=== PATIENT | male | born 1975 | race Caucasian/White ===

== ENCOUNTER 2023-09-03 12:07 | Outpatient (AMB) | payer OTHER, SELFPAY ==
[2023-09-03 12:15] VITALS: BP 122/72; PULSE 102; O2SAT 98; BMI 33.7
--- NOTE | 2023-09-03 12:15 | A.OFFPC_ITS ---
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 Dad: DM-I, CAD w/ Bypass, CHF. SocHx: Nonsmoker. EtOH Rarely 1 dr. No drugs PFS Medical History (Updated 09/03/23 @ 12:57 by Anderson Lynn) No pertinent past medical history Surgical History (Updated 09/03/23 @ 12:23 by Nanette Cedeno CMA) No pertinent past surgical history Family History (Updated 09/03/23 @ 12:24 by Nanette Cedeno CMA) Father Diabetes Mother Cervical cancer Social History Household Members: Spouse Housing: House Are you a primary direct care provider to a significant other at home: No Do you presently have visiting nurse or other home services: No Alcohol intake: current Comment: on occasion Patient Tobacco Use Status: Never used Tobacco e-Cigarette/Vaping Use: Never Used service: No Current occupational status: employed 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 Cognitive needs: No Hearing needs: No Vision needs: Yes (Patient wears glasses) Review of Systems Const Denies chills, Denies fatigue, Denies fever(s), Denies headache(s) and Denies weakness ENT Denies dizziness and Denies headache(s) Card Denies chest pain, Denies lightheadedness, Denies dyspnea and Denies other (Palpitations) Resp Denies cough, Denies dyspnea, Denies wheezing and Denies other ( shortness of breath) Musc Denies numbness and Denies tingling Neuro Denies dizziness, Denies headache(s), Denies numbness, Denies tingling, Denies paresthesias and Denies weakness Psych Denies anxiety and Denies depression Endo Denies fatigue Aller/Immun Denies wheezing Physical exam (Primary Care) Vital Signs: Last Vital Signs Pulse 102 H 09/03/23 12:15 BP 122/72 09/03/23 12:15 Pulse Ox 98 09/03/23 12:15 Oxygen Delivery Method Room Air 09/03/23 12:15 BMI result Body Mass Index 33.7 Tobacco/Smoking Status: Tobacco use Status Tobacco use date assessed 09/03/23 09/03/23 12:23 Patient Tobacco Use Status Never used Tobacco 09/03/23 12:26 e-Cigarette/Vaping Use Never Used 09/03/23 12:26 Const General: no acute distress and well developed Nutritional Appearance: well nourished Orientation/consciousness: patient oriented x3 HENMT Head: Yes normocephalic and Yes atraumatic Eyes General: appearance normal, both eyes and all related structures Pupils: Equal, round and reactive pupils present EOM: EOMs intact bilaterally Resp Effort & Inspection: normal respiratory effort Auscultation: clear to auscultation bilaterally Cardio Rate: tachycardic (mild) Rhythm: regular rhythm Heart sounds: S1 normal heart sound present, S2 normal heart sound present, no gallops, no murmurs and no rubs Neuro General: patient oriented x3 and gait normal Cranial nerves: Yes Equal, round and reactive pupils present Psych Affect: normal affect Office Procedures EKG 64704-[id number], Complete Assessment and Plan Assessment & Plan (1) Foot pain: Code(s): M79.673 - Pain in unspecified foot Plan: Bilateral?5th?metatarsal?head?pain Likely?tendinitis?or?bursitis Encouraged?good?foot?gear Ice, NSAIDs Demonstrated?stretching Referred?to?Podiatry (2) Laboratory exam ordered as part of routine general medical examination: Code(s): Z00.00 - Encounter for general adult medical examination without abnormal findings Plan: Check?lab EKG (3) Tachycardia: Code(s): R00.0 - Tachycardia, unspecified Plan: Mild?tachycardia EKG: ?EKG?showed?normal?sinus?rhythm?with?heart?rate?of?96?beats?per?minute?when?lyin g?flat. Also?shows?left?atrial?enlargement?and?inferior?infarct?with?Q- waves?in?lead?3?and?AVF. (4) Abnormal EKG: Code(s): R94.31 - Abnormal electrocardiogram [ECG] [EKG] Plan: As?above,?EKG?shows?atrial?enlargement?and?old?inferior?infarct. Patient?denies?any?history?of?chest?pain.??Denies?shortness?of? breath.??Asymptomatic Will?check?echocardiogram Referred?to?cardiology Orders: Orders Comprehensive Cornish. Panel Fast Today Z00.00 - Encounter for general adult medical examination without abnormal findings Prostate Specific Antigen Scr Today Z12.5 - Encounter for screening for malignant neoplasm of prostate Lipid Panel Today Z00.00 - Encounter for general adult medical examination without abnormal findings TSH reflex Free T4 Today Z00.00 - Encounter for general adult medical examination without abnormal findings UA and rflx microscopic Today Z00.00 - Encounter for general adult medical examination without abnormal findings Microalbumin, Random (w Creat) Today I10 - Essential (primary) hypertension AMB EKG-In Office Today Z00.00 - Encounter for general adult medical examination without abnormal findings CA echo transthoracic complete Today R94.31 - Abnormal electrocardiogram [ECG] [EKG] Referrals Podiatry Referral M79.673 - Pain in unspecified foot Cardiology Referral R94.31 - Abnormal electrocardiogram [ECG] [EKG] Coding Level of Care Code New Pt Level 3 (03543) Diagnoses Foot pain M79.673 Laboratory exam ordered as part of routine general medical examination Z00.00 Tachycardia R00.0 Abnormal EKG R94.31 CPT Codes EKG - CPT: 10738-[id number], Complete ([id number])
== END 2023-09-03 12:59 | disposition home or self-care (01) ==
PROVIDERS: PCP Family Medicine; Visit Provider Family Medicine
DX: M79.673 Pain in unspecified foot (principal); Z00.00 Encounter for general adult medical examination without abnormal findings; R00.0 Tachycardia, unspecified; R94.31 Abnormal electrocardiogram [ECG] [EKG]
CPT/HCPCS: 93000; 99203

== ENCOUNTER → 2023-09-24 14:41 | Outpatient (REF) | payer OTHER, SELFPAY ==
--- NOTE | 2023-09-24 14:49 | CA_ITS ---
Transthoracic Echocardiogram Patient (Last, First, Middle): Barrington Salguero, Gender: Male Date of : 1975 Age: 48 Procedure Date: 09/24/2023 Procedure Type: Transthoracic Echocardiogram Location: OP Height: 175.26 cm Weight: 99.79 kg BSA: 2.15 m2 Heart Rate: bpm BP: 120 / 78 mmHg Netting Inspector: TO Referring MD: Willi Mary MD Symptoms: R94.31 - Abnormal electrocardiogram [ECG] [EKG] Study Quality: Fair/Contrast ECG Rhythm: Sinus tachycardia Conclusions: - The left ventricular systolic function is mildly decreased. The calculated ejection fraction is 51% by biplane method. - The inferolateral wall, the basal inferior, and mid anterolateral segments are hypokinetic. - No obvious valvular pathology seen on this study. - There is mild dilatation of the ascending aorta measuring 4.10 cm. Findings Procedure Information Contrast agent, definity, is being given per protocol without apparent complications. Left Ventricle Normal left ventricular cavity size. There is mildly increased left ventricular wall thickness. The left ventricular systolic function is mildly decreased. The calculated ejection fraction is 51% by biplane method. There is moderate septal asymmetric hypertrophy. Wall Motion Rest Echo Findings The inferolateral wall, the basal inferior, and mid anterolateral segments are hypokinetic. Right Ventricle Normal right ventricular cavity size and systolic function. Atria Both atria are normal in size. Aortic Valve There is a normal trileaflet aortic valve. There is no aortic valve stenosis. There is no aortic valve regurgitation. Mitral Valve The mitral valve appears normal. There is no mitral valve regurgitation. There is no mitral valve stenosis. Pulmonic Valve The pulmonic valve is likely normal. Tricuspid Valve There is no tricuspid valve regurgitation. Tricuspid regurgitation envelope is inadequate for calculation of right ventricular systolic pressure. Great Vessels There is mild dilatation of the ascending aorta measuring 4.10 cm. Venous The inferior vena cava is normal in size and collapses greater than 50% with inspiration. Pericardium/Pleural There is no evidence of pericardial effusion. Prior Study Comparison No prior study available for comparison. Recommendations, Care & Conclusions No obvious valvular pathology seen on this study. Measurements 2D Linear Measurements IVSd: 1.41 0.6-0.9/0.6-1.0 cm LVIDd: 4.84 3.9-5.3/4.2-5.9 cm LVIDd Index: 2.25 2.4-3.2/2.2-3.1 cm/m2 LVIDs: 3.47 2.0-3.6 cm LVPWd: 1.17 0.7-1.1 cm LA Diam: 3.30 2.7-3.8/3.0-4.0 cm LAIDs Index: 1.53 1.5-2.3 cm/m2 LV Mass: 306.94 67-162/88-224 g LV Mass Index: 142.76 43-95/49-115 g/m2 LVOT Diam: 2.80 3.0+(-)1.3 cm 2D Systolic Function EF 4C: 54.70 >55% EF 2C: 50.20 >55% EF BiP: 50.70 >55% Mitral Valve MV Pk E: 0.52 MV PK A: 0.80 MV Decel Time: 123.00 E/A: 0.70 E'Lateral: 12.90 E'Medial: 7.29 E/E' Med: 7.20 E/E' Lat: 4.10 PHT: 36.00 MVA PHT: 6.11 Decel Waldo: 4.25 Aortic Valve AoV Pk Danilo: 1.39 AoV Mn Danilo: 0.92 AoV VTI: 0.21 AoV Pk Grad: 8.00 Aov Mn Grad: 4.00 KAREN Cont.VTI: 4.81 LVOT LVOT Pk Danilo: 1.03 LVOT Mn Danilo: 0.67 LVOT VTI: 0.16 LVOT Pk Grad: 4.00 LVOT Mn Grad: 2.00 LVOT Diam: 2.80 LVOT Area: 6.16 Diastolic Function MV Pk E: 0.52 MV Pk A: 0.80 E/A: 0.70 E'Medial: 7.29 E/E' Med: 7.20 E' Laterial: 12.90 E/E' Lat: 4.10 Right Ventricle TAPSE (mm): 23.30 TVS' Danilo: 14.30 Tricuspid Valve RA Press: 3.00 Great Vessels Aorta Sinus of Valsalva: 4.30 2.0-3.[address] [place]: 3.44 1.7-3.4 cm Ao Asc: 4.10 2.1-3.4 cm Ao Arch: 3.40 Updated in Other Vendor System with Status of Final Toy Burger MD electronically signed on 09/25/2023 10:58:13 AM with status of Final
== END ==
LOC: HO.CARD 14:41
PROVIDERS: PCP Family Medicine; Visit Provider Family Medicine
DX: R94.31 Abnormal electrocardiogram [ECG] [EKG] (principal)
CPT/HCPCS: 93306; Q9957

== ENCOUNTER → 2023-09-24 14:49 | Outpatient (BNV) | payer OTHER, SELFPAY | PROVIDERS: PCP Family Medicine; Visit Provider Internal Medicine | DX: I42.2 Other hypertrophic cardiomyopathy (principal); R94.31 Abnormal electrocardiogram [ECG] [EKG] | CPT/HCPCS: 93306 ==

== ENCOUNTER 2023-10-06 15:53 | Outpatient (AMB) | payer OTHER, SELFPAY ==
[2023-10-06 16:02] VITALS: BP 130/72; PULSE 102; O2SAT 97; BMI 33.1
--- NOTE | 2023-10-06 16:02 | MHC.PC.OV ---
Vital Signs 10/06/23 16:02 Height 5 ft 9 in Weight 224 lb 2 oz BMI 33.1 BP 130/72 Blood Pressure Location Rt brachial Position Sitting Pulse 102 H Pulse Source Pulse Oximeter Pulse Oximetry (%) 97 Oxygen Delivery Method Room Air Intake Visit Reasons: f/u echocardiogram and labs Intake Note: Patient is here to follow up on the echocardiogram. Allergies albumin Adverse Reaction (Mild, Uncoded 10/16/23 13:58) Vomiting Tobacco use date assessed: 10/06/23 Dental Screening Dental Screen Date: 09/03/23 HPI f/u echocardiogram and labs HPI Details 48 y/o male presents to f/u echocardiogram and labs. EKG performed due to tachycardia and new patient 48 years of age - EKG showed atrial enlargement and also Q-waves in lead 3 and AVF; appears to have inferior infarction though he denies any history of chest pain or current symptoms. Echocardiogram 09/24/23 showed no obvious valvular pathology. The inferolateral wall, the basal inferior, and mid anterolateral segments are hypokinetic. L ventricular systolic function mildly decreased. No recent labs to review. Has an appt. with Cardiology in November. [facility] Medical History (Updated 10/18/23 @ 10:42 by Lin Rivers MD) Diabetes No pertinent past medical history Surgical History (Updated 10/16/23 @ 14:45 by Lin Rivers MD) No pertinent past surgical history (~10/16/23) Family History (Updated 09/03/23 @ 12:24 by Nanette Cedeno CMA) Father Diabetes Mother Cervical cancer Social History (Updated 09/03/23 @ 12:26 by Nanette Cedeno CMA) Household Members: Spouse Housing: House Are you a primary animal care attendant to a significant other at home: No Do you presently have visiting nurse or other home services: No Alcohol intake: current Comment: on occasion Patient Tobacco Use Status: Never used Tobacco e-Cigarette/Vaping Use: Never Used service: No Current occupational status: employed 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 Cognitive needs: No Hearing needs: No Vision needs: Yes (Patient wears glasses) Review of Systems Const Denies chills, Denies fatigue, Denies fever(s), Denies headache(s) and Denies weakness ENT Denies dizziness and Denies headache(s) Card Denies dyspnea Resp Denies cough, Denies dyspnea, Denies wheezing and Denies other (shortness of breath) Musc Denies numbness and Denies tingling Neuro Denies dizziness, Denies headache(s), Denies numbness, Denies tingling and Denies weakness Psych Denies anxiety and Denies depression Endo Denies fatigue Aller/Immun Denies wheezing Physical exam (Primary Care) Vital Signs: Last Vital Signs Pulse 102 H 10/06/23 16:02 BP 130/72 10/06/23 16:02 Pulse Ox 97 10/06/23 16:02 Oxygen Delivery Method Room Air 10/06/23 16:02 BMI result Body Mass Index 33.1 Tobacco/Smoking Status: Tobacco use Status Tobacco use date assessed 10/06/23 10/06/23 16:09 Patient Tobacco Use Status Never used Tobacco 10/06/23 16:06 e-Cigarette/Vaping Use Never Used 10/06/23 16:06 Const General: well developed; No acute distress Nutritional Appearance: well nourished Orientation/consciousness: patient oriented x3 HENMT Head: Yes normocephalic and Yes atraumatic Eyes General: appearance normal, both eyes and all related structures Pupils: Equal, round and reactive pupils present EOM: EOMs intact bilaterally Resp Effort & Inspection: normal respiratory effort Auscultation: clear to auscultation bilaterally Cardio Rate: tachycardic Rhythm: regular rhythm Heart sounds: S1 normal heart sound present, S2 normal heart sound present, no gallops, no murmurs and no rubs Neuro General: patient oriented x3 and gait normal Cranial nerves: Yes Equal, round and reactive pupils present Psych Affect: normal affect Assessment and Plan Assessment & Plan (1) Abnormal echocardiogram: Code(s): R93.1 - Abnormal findings on diagnostic imaging of heart and coronary circulation Plan: Mildly?decreased?ejection?fraction?at?51%?with?inferolateral wall, the basal inferior, and mid anterolateral hypokinesis. Also?had?EKG which ?showed?inferior?changes Pt was referred to Cardiology and has upcoming appt No symptomes. Go to ED for any pain or other sxs such as SOB, diaphoresis, dizziness or weakness/fatigue. (2) Tachycardia: Code(s): R00.0 - Tachycardia, unspecified Plan: as above (3) Abnormal echocardiogram: Code(s): R93.1 - Abnormal findings on diagnostic imaging of heart and coronary circulation Plan: As above Orders: Orders NM cardiolite stress test 10/06/23 R00.0 - Tachycardia, unspecified, R93.1 - Abnormal findings on diagnostic imaging of heart and coronary circulation, R94.31 - Abnormal electrocardiogram [ECG] [EKG] Medications: New atorvastatin 40 mg PO BEDTIME 90 tabs 2RF 90 days aspirin 81 mg PO DAILY 90 tabs 3RF 90 days Coding Level of Care Code Est Pt Level 3 (33246) Diagnoses Abnormal echocardiogram R93.1 Tachycardia R00.0
== END 2023-10-06 17:07 | disposition home or self-care (01) ==
PROVIDERS: PCP Family Medicine; Visit Provider Family Medicine
DX: R93.1 Abnormal findings on diagnostic imaging of heart and coronary circulation (principal); R00.0 Tachycardia, unspecified
CPT/HCPCS: 99213

== ENCOUNTER 2023-10-13 08:40 | Outpatient (REF) | payer OTHER, SELFPAY ==
[2023-10-13 09:56] LABS: Alanine Aminotransferase 24 U/L (0-40); Albumin Level 4.3 g/dL (3.5-5.0); Alkaline Phosphatase 65 U/L (39-117); Anion Gap 14 (12-20); Aspartate Amino Transferase 16 U/L (5-37); Bilirubin Total 1.2 mg/dL (0.0-1.0); Blood Urea Nitrogen 10 mg/dL (9-16); Calcium 9.4 mg/dL (8.4-10.2); Carbon Dioxide 26 mmol/L (22-29); Chloride 100 mmol/L (96-108); Cholesterol 198 mg/dL (<200); Estimated Glomerular Filt Rate > 60; Glucose Fasting 307 mg/dL (60-99); HDL Cholesterol 42 mg/dL (>40); LDL Cholesterol Calculated 133 mg/dL (<100); Potassium 4.2 mmol/L (3.3-5.1); Sodium 136 mmol/L (135-145); Total Protein 7.1 g/dL (6.5-8.0); Triglycerides 116 mg/dL (<150)
[2023-10-13 09:57] LABS: Appearance Urine Clear; Color Urine Yellow; Glucose Urine UA >=1000 mg/dL (Negative); Leukocyte Esterase Urine Negative (Negative); Nitrite Urine Negative (Negative); Specific Gravity - Urine 1.025 (1.005-1.025); UMIC TRIGGER UA YES; Urine Blood Negative (Negative); Urine Ketones Negative (Negative); Urine Protein Negative (Neg-Trace)
[2023-10-13 10:03] LABS: TSH reflex Free T4 0.71 uIU/mL (0.32-4.0)
[2023-10-13 10:11] LABS: Prostate Specific Antigen Scr 0.18 ng/mL (<0.05-4.0)
[2023-10-13 10:15] LABS: Bacteria Urine None Seen (None Seen); Hyaline Casts Urine 0-2 /LPF (0-2); RBC Urine 0-2 /HPF (0-2); Squamous Epithelial Cell Urine 0-2 /HPF (0-2); WBC Urine 0-5 /HPF (0-5)
[2023-10-13 10:27] LABS: Creatinine Urine 125.01 mg/dL; Microalbum/Creatinine Ratio Ur 23.1 ug/mg cr (<30)
== END 2023-10-13 08:41 | disposition home or self-care (01) ==
LOC: HO.LAB 08:40
PROVIDERS: PCP Family Medicine; Visit Provider Family Medicine
DX: Z00.00 Encounter for general adult medical examination without abnormal findings (principal); I10 Essential (primary) hypertension; Z12.5 Encounter for screening for malignant neoplasm of prostate
CPT/HCPCS: 36415; 80053; 80061; 81001; 82043; 82570; 84153; 84443

== ENCOUNTER 2023-10-16 13:46 | Outpatient (AMB) | payer OTHER, SELFPAY ==
--- NOTE | 2023-10-16 13:58 | MHC.PC.OV ---
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 Seeing his elevated glucose last week the patient started a low/no carb diet and has been doing well. He denies polydipsia, polyuria. No abdominal pain. Endorses some recent weight loss. There is a strong family history of diabetes Patient has an upcoming consult with cardiology in November. He had an EKG suggestive of old ischemia and subsequent echocardiogram showed mild systolic dysfunction with moderate hypokinesis. [facility] Medical History (Updated 10/18/23 @ 10:42 by Lin Rivers MD) Diabetes No pertinent past medical history Surgical History (Updated 10/16/23 @ 14:45 by Lin Rivers MD) No pertinent past surgical history (~10/16/23) Family History (Updated 09/03/23 @ 12:24 by Nanette Cedeno CMA) Father Diabetes Mother Cervical cancer Social History (Updated 09/03/23 @ 12:26 by Nanette Cedeno CMA) Household Members: Spouse Housing: House Are you a primary health care legal assistant to a significant other at home: No Do you presently have visiting nurse or other home services: No Alcohol intake: current Comment: on occasion Patient Tobacco Use Status: Never used Tobacco e-Cigarette/Vaping Use: Never Used service: No Current occupational status: employed 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 Cognitive needs: No Hearing needs: No Vision needs: Yes (Patient wears glasses) Review of Systems Const Details: see HPI Physical exam (Primary Care) Vital Signs: Last Vital Signs Temp 98.4 F 10/16/23 14:00 Pulse 115 H 10/16/23 14:00 Resp 14 10/16/23 14:00 BP 134/88 10/16/23 14:13 Pulse Ox 97 10/16/23 14:00 Oxygen Delivery Method Room Air 10/16/23 14:00 PHYSICAL EXAM: GENERAL: Alert and oriented x 3. NAD EYES: EOMI. Anicteric. HENT: Moist mucous membranes. No scleral icterus. No cervical lymphadenopathy. LUNGS: Clear to auscultation bilaterally. CARDIOVASCULAR: Regular rate and rhythm. No murmur. No JVD. ABDOMEN: Soft, non-tender +bs EXTREMITIES: No edema. Non-tender. SKIN: No rashes or lesions. Warm. NEUROLOGIC: No focal neurological deficits. PSYCHIATRIC: Cooperative. Appropriate mood and affect BMI result Body Mass Index 33.5 Tobacco/Smoking Status: Tobacco use Status Tobacco use date assessed 10/06/23 10/16/23 14:02 Patient Tobacco Use Status Never used Tobacco 10/16/23 14:02 e-Cigarette/Vaping Use Never Used 10/16/23 14:02 Results AMB Hemoglobin A1c AMB Hemoglobin A1c 12.7 % Last Edit by Marlene Esquivel CMA on 10/16/23 14:44 Results Reviewed Results Reviewed: Laboratory Last Values Hgb A1c (Clinic) 12.7 % (4.0-6.0) H 10/16/23 14:35 Assessment and Plan Assessment & Plan (1) Type 2 diabetes mellitus with hyperglycemia: Comment: Discussed diagnosis Patient declines nutrition referral at present . 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 drier operator use Qualified Code(s): E11.65 - Type 2 diabetes mellitus with hyperglycemia (2) Chronic systolic CHF (congestive heart failure): Code(s): I50.22 - Chronic systolic (congestive) heart failure (3) CAD (coronary artery disease): Code(s): I25.10 - Atherosclerotic heart disease of [place] coronary artery without angina pectoris Orders: Orders AMB Hemoglobin A1c 10/16/23 E11.9 - Type 2 diabetes mellitus without complications Medications: New metformin ER Take one tablet oral twice daily for one week then increase to 2 tab oral twice daily 1,000 mg (2 x 500 mg) PO BID 360 tabs 3RF 90 days FreeStyle [place] 14 Day [place] (flash glucose scanning reader) As directed 1 ea 0RF NS E11.65 - Type 2 diabetes mellitus with hyperglycemia FreeStyle [place] 14 Day Sensor (flash glucose sensor) As directed 6 ea 3RF NS E11.65 - Type 2 diabetes mellitus with hyperglycemia Coding Level of Care Code Tele Est Pt Level 5 (46053) Diagnoses Type 2 diabetes mellitus with hyperglycemia, without long-term current use of insulin E11.65 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
[2023-10-16 14:00] VITALS: BP 136/90; PULSE 115; RESP 14; TEMP 36.9; O2SAT 97; BMI 33.5
[2023-10-16 14:13] VITALS: BP 134/88
== END 2023-10-16 14:58 | disposition home or self-care (01) ==
PROVIDERS: PCP Family Medicine; Visit Provider Internal Medicine
DX: E11.65 Type 2 diabetes mellitus with hyperglycemia (principal); I50.22 Chronic systolic (congestive) heart failure; I25.10 Atherosclerotic heart disease of native coronary artery without angina pectoris
CPT/HCPCS: 83036; 99215

== ENCOUNTER 2023-11-02 11:10 | Outpatient (AMB) | payer OTHER, SELFPAY ==
--- NOTE | 2023-11-02 11:16 | MHC.PC.OV ---
Vital Signs 11/02/23 11:19 Height 5 ft 9 in Weight 216 lb 6 oz BMI 31.9 BP 118/80 Blood Pressure Location Lt brachial Position Sitting Respiration 14 Pulse 91 Pulse Source Pulse Oximeter Pulse Oximetry (%) 98 Oxygen Delivery Method Room Air Intake Visit Reasons: CPE Intake Note: Follow up. Allergies albumin Adverse Reaction (Mild, Uncoded 11/02/23 11:17) Vomiting Tobacco use date assessed: 10/06/23 Dental Screening Dental Screen Date: 09/03/23 HPI HPI Comments History of Present Illness Details The patient is a 48 year old male with a past medical history of recent abnormal cardiac testing, hyperlipidemia brought in to review labs, specifically increased glucose level Had labs last month with elevated glucose, then A1C 12.7%. He was started on metformin 2 weeks ago and has uptitrated to 1000mg twice daily. tolerating well. Average fasting glucose now ~130-150 with overall average 150-190, improved from previous readings. Using CGM. continues on his low/no carb diet and has been doing well. There is a strong family history of diabetes Patient has an upcoming consult with cardiology in November. He had an EKG suggestive of old ischemia and subsequent echocardiogram showed mild systolic dysfunction with moderate hypokinesis. ROS CONSTITUTIONAL: Denies weight loss, fever and chills. HEENT: Denies changes in vision and hearing. RESPIRATORY: Denies SOB and cough. CV: Denies palpitations and CP GI: Denies abdominal pain, nausea, vomiting and diarrhea. : Denies dysuria and urinary frequency. MSK: Denies new myalgia and joint pain. SKIN: Denies rash and pruritus. NEUROLOGICAL: Denies headache PSYCHIATRIC: Denies recent changes in mood. PHYSICAL EXAM: GENERAL: Alert and oriented x 3. NAD EYES: EOMI. Anicteric. HENT: Moist mucous membranes. No scleral icterus. No cervical lymphadenopathy. LUNGS: Clear to auscultation bilaterally. CARDIOVASCULAR: Regular rate and rhythm. No murmur. No JVD. ABDOMEN: Soft, non-tender +bs EXTREMITIES: No edema. Non-tender. SKIN: No rashes or lesions. Warm. NEUROLOGIC: No focal neurological deficits. CN II-XII grossly intact PSYCHIATRIC: Cooperative. Appropriate mood and affect [facility] Medical History (Updated 11/03/23 @ 13:07 by Lin Rivers MD) Diabetes No pertinent past medical history Surgical History (Updated 10/16/23 @ 14:45 by Lin Rivers MD) No pertinent past surgical history (~10/16/23) Family History (Updated 09/03/23 @ 12:24 by Nanette Cedeno CMA) Father Diabetes Mother Cervical cancer Social History (Updated 09/03/23 @ 12:26 by Nanette Cedeno CMA) Household Members: Spouse Housing: House Are you a primary client care consultant to a significant other at home: No Do you presently have visiting nurse or other home services: No Alcohol intake: current Comment: on occasion Patient Tobacco Use Status: Never used Tobacco e-Cigarette/Vaping Use: Never Used service: No Current occupational status: employed 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 Cognitive needs: No Hearing needs: No Vision needs: Yes (Patient wears glasses) Physical exam (Primary Care) Vital Signs: Last Vital Signs Pulse 91 11/02/23 11:19 Resp 14 11/02/23 11:19 BP 118/80 11/02/23 11:19 Pulse Ox 98 11/02/23 11:19 Oxygen Delivery Method Room Air 11/02/23 11:19 BMI result Body Mass Index 31.9 Tobacco/Smoking Status: Tobacco use Status Tobacco use date assessed 10/06/23 11/02/23 11:16 Patient Tobacco Use Status Never used Tobacco 11/02/23 11:16 e-Cigarette/Vaping Use Never Used 11/02/23 11:16 Assessment and Plan Assessment & Plan (1) Type 2 diabetes mellitus with hyperglycemia: Comment: Continue metformin 1000mg twice daily. Given likely CAD add jardiance as glucose still suboptimal. Discussed MOA and potential SE. Start CAN low dose. Start statin. Return in 2 months for follow up & CPE Code(s): E11.65 - Type 2 diabetes mellitus with hyperglycemia Qualifiers: Diabetes mellitus care home insulin use: without care home use Qualified Code(s): E11.65 - Type 2 diabetes mellitus with hyperglycemia (2) Chronic systolic CHF (congestive heart failure): Comment: Follow up with cardiology consult as planned Code(s): I50.22 - Chronic systolic (congestive) heart failure (3) CAD (coronary artery disease): Code(s): I25.10 - Atherosclerotic heart disease of [place] coronary artery without angina pectoris Qualifiers: Coronary Disease-Associated Artery/Lesion type: [place] artery Associated angina: without angina [place] vs. transplanted heart: [place] heart Qualified Code(s): I25.10 - Atherosclerotic heart disease of [place] coronary artery without angina pectoris Orders: Orders Comprehensive [place]. Panel Fast 11/02/23 E11.65 - Type 2 diabetes mellitus with hyperglycemia, I25.10 - Atherosclerotic heart disease of [place] coronary artery without angina pectoris, I50.22 - Chronic systolic (congestive) heart failure Hemoglobin A1c 11/02/23 E11.65 - Type 2 diabetes mellitus with hyperglycemia, I25.10 - Atherosclerotic heart disease of [place] coronary artery without angina pectoris, I50.22 - Chronic systolic (congestive) heart failure Lipid Panel 11/02/23 E11.65 - Type 2 diabetes mellitus with hyperglycemia, I25.10 - Atherosclerotic heart disease of [place] coronary artery without angina pectoris, I50.22 - Chronic systolic (congestive) heart failure Medications: New empagliflozin (Jardiance) 10 mg PO QAM 90 tabs 3RF 90 days lisinopril 2.5 mg PO DAILY 90 tabs 3RF 90 days Coding Level of Care Code Tele Est Pt Level 5 (87647) Complex EM visit Add On G2211 Diagnoses Type 2 diabetes mellitus with hyperglycemia, without long-term current use of insulin E11.65 Diabetes mellitus 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 transplanted heart: [place] heart
[2023-11-02 11:19] VITALS: BP 118/80; PULSE 91; RESP 14; O2SAT 98; BMI 31.9
== END 2023-11-02 12:04 | disposition home or self-care (01) ==
PROVIDERS: PCP Internal Medicine; Visit Provider Internal Medicine
DX: E11.65 Type 2 diabetes mellitus with hyperglycemia (principal); I50.22 Chronic systolic (congestive) heart failure; I25.10 Atherosclerotic heart disease of native coronary artery without angina pectoris
CPT/HCPCS: 99214; G2211

== ENCOUNTER 2023-11-18 08:34 | Outpatient (AMB) | payer OTHER, SELFPAY ==
--- NOTE | 2023-11-18 08:35 | A.OFFVIS_ITS ---
VS Expanded 11/18/23 08:37 11/23/23 14:33 Height 5 ft 9 in 5 ft 9 in Weight 208 lb 5.389 oz 208 lb BMI 30.8 30.7 Intake Visit Reasons: T2DM with hyperglycemia/LVM Allergies albumin Adverse Reaction (Mild, Uncoded 11/02/23 11:17) Vomiting Nutrition Presentation Details: Pt presents for MNT for T2DM with atherosclerotic heart disease. Pt was referred by Dr. Rivers BS Monitoring Most Recent Diabetes Results: Microalb/Creat Ratio 23.1 ug/mg cr (<30) 10/13/23 Cholesterol 198 mg/dL (<200) 10/13/23 HDL Cholesterol 42 mg/dL (>40) 10/13/23 Triglycerides 116 mg/dL (<150) 10/13/23 Creatinine 0.79 mg/dL (0.5-1.4) 10/13/23 Blood Urea Nitrogen 10 mg/dL (9-16) 10/13/23 Sodium 136 mmol/L (135-145) 10/13/23 Potassium 4.2 mmol/L (3.3-5.1) 10/13/23 Chloride 100 mmol/L (96-108) 10/13/23 Carbon Dioxide 26 mmol/L (22-29) 10/13/23 Calcium 9.4 mg/dL (8.4-10.2) 10/13/23 AST 16 U/L (5-37) 10/13/23 ALT 24 U/L (0-40) 10/13/23 Total Protein 7.1 g/dL (6.5-8.0) 10/13/23 Albumin 4.3 g/dL (3.5-5.0) 10/13/23 [id number] Equation Height: 5 ft 9 in Weight: 208 lb Resting Metabolic Rate: 1796.90 Calculated Activity Level: Mild Activity Calories Needed to Maintain Weight: 2470.74 Diagnosis Nutrition problem #1: food nutri know defi As related to (etiology) #1: diagnosis As evidenced by (sign/symptom) #1: knowledge deficit of diet Monitoring/Goals Nutrition problem monitoring: level of knowledge/skill Nutrition goal/outcome: wt loss 5lbs in 2 months Outcome progress: verbalized understanding Learning/Education Readiness to learn: good [facility] Medical History (Updated 11/23/23 @ 14:[address], LDN) Diabetes No pertinent past medical history Surgical History (Updated 10/16/23 @ 14:45 by Lin Rivers MD) No pertinent past surgical history (~10/16/23) Family History (Updated 09/03/23 @ 12:24 by Nanette Cedeno CMA) Father Diabetes Mother Cervical cancer Social History (Updated 09/03/23 @ 12:26 by Nanette Cedeno CMA) Household Members: Spouse Housing: House Are you a primary childbirth and infant care teacher to a significant other at home: No Do you presently have visiting nurse or other home services: No Alcohol intake: current Comment: on occasion Patient Tobacco Use Status: Never used Tobacco e-Cigarette/Vaping Use: Never Used service: No Current occupational status: employed 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 Cognitive needs: No Hearing needs: No Vision needs: Yes (Patient wears glasses) Assessment & Plan Assessment & Plan (1) Type 2 diabetes mellitus with hyperglycemia: Code(s): E11.65 - Type 2 diabetes mellitus with hyperglycemia Category: Medical Qualifiers: Diabetes mellitus senior care insulin use: without long term acute care registered nurse use Qualified Code(s): E11.65 - Type 2 diabetes mellitus with hyperglycemia Plan: Wt: 94 Kg ( 10/2023 ) Est kcal needs as per MSJ: 2500 (40% carb, 30% protein/fat) Est fluid needs as per 25-30 ml/d: 2820 Est prot per day as per 1 g/kg bw: 94 Recommend fiber intake : 8-10 g per day and gradually increase to 25-28 g per day for women and 35-38 g for men or as tolerated Recommend sodium intake per day : less than 2000 mg Educated patient on: ( R = reviewed V = verbalizes understanding N/R = needs review N/A = not applicable * Food sources of carbohydrate, adequate serving sizes and its role in various health conditions: R * Differences between complex carbohydrates a simple carbohydrates, role of fiber in diet: R * Lean protein sources of foods: R * Differences between types of fats and role in diet (mono on saturated fat fatty acids, saturated fatty acids, trans fats): R basic * Food sources of sodium in salt and healthy modifications for heart health in kidney health: R V R/V * Vitamins and minerals: R V N/R * Healthy plate method concept: R * Physical activity: Benefits a precaution: R V N/R * Hypoglycemia protocol (rule of 15): R V N/R * Dietary prevention of Hyperglycemia: R Patient Instructions: Follow healthy plate method choosing complex carbs, fiber rich foods Reduce total carb at meal to less than 80 g , read food labels, measure food portions Drink water with meals /snacks see meal ideas as reference Coding Level of Care Code Nutr Indiv Intake (02303) Diagnoses Type 2 diabetes mellitus with hyperglycemia, without long-term current use of insulin E11.65 Diabetes mellitus senior care insulin use: without long term acute care registered nurse use Time Spent (min) 30
[2023-11-18 08:37] VITALS: BMI 30.8
[2023-11-24 08:36] VITALS: BMI 30.7
== END 2023-11-18 09:17 | disposition home or self-care (01) ==
PROVIDERS: PCP Internal Medicine; Visit Provider Dietitian, Registered
DX: E11.65 Type 2 diabetes mellitus with hyperglycemia (principal)

== ENCOUNTER → 2023-11-18 08:34 | Outpatient (BNVA) | payer OTHER, SELFPAY | PROVIDERS: PCP Internal Medicine; Visit Provider Dietitian, Registered | DX: E11.65 Type 2 diabetes mellitus with hyperglycemia (principal); Z71.3 Dietary counseling and surveillance | CPT/HCPCS: 97802 ==

== ENCOUNTER → 2023-11-19 07:58 | Outpatient (REF) | payer OTHER, SELFPAY ==
--- NOTE | 2023-11-19 08:01 | CA_ITS ---
Acquisition Time: 2023-11-19 08:03:18 Total Exercise Time: 00:07:45 Test Indications: ABN ECHO Medications: Protocol: TIMOTHY Max HR: 148 BPM 87% of Pred: 170 BPM Max BP: 154/064 mmHG Max Work Load: 9.6 METS Exercise stress exercise 7 min 45 sec of Timothy protocol achieving 87% MPHR, without anginal symptoms, with isolated PVCs, ventricular cuplet, ventricular bigeminy, with normotensive response to exercise, without EKG changes. Test reviewed with Dr. Jeanie Guadarrama stress echo for further testing. Holter to asses for ectopy burden, Referred By: Lin Rviers Overread By: Stephanie Delaney
== END ==
LOC: HO.CARD 07:58
PROVIDERS: PCP Internal Medicine; Visit Provider Internal Medicine
DX: R93.1 Abnormal findings on diagnostic imaging of heart and coronary circulation (principal); R94.31 Abnormal electrocardiogram [ECG] [EKG]
CPT/HCPCS: 93017

== ENCOUNTER → 2023-11-19 08:01 | Outpatient (BNV) | payer OTHER, SELFPAY | PROVIDERS: PCP Internal Medicine; Visit Provider Nurse Practitioner | DX: I49.3 Ventricular premature depolarization (principal) | CPT/HCPCS: 93016; 93018 ==

== ENCOUNTER 2023-12-22 12:50 | Outpatient (AMB) | payer OTHER, SELFPAY ==
[2023-12-22 13:12] VITALS: BMI 29.9
--- NOTE | 2023-12-22 13:12 | MHC.AMNUTRGE ---
VS Expanded 12/22/23 13:12 Height 5 ft 9 in Weight 202 lb 2.622 oz BMI 29.9 Intake Visit Reasons: [id number] Allergies albumin Adverse Reaction (Mild, Uncoded 11/02/23 11:17) Vomiting Nutrition Presentation Details: Pt presents for MNT f/u for T2DM Pt reports working on following meal plan practicing mindful eating BS Monitoring Most Recent Diabetes Results: Microalb/Creat Ratio 23.1 ug/mg cr (<30) 10/13/23 Cholesterol 167 mg/dL (<200) 12/29/23 HDL Cholesterol 46 mg/dL (>40) 12/29/23 Triglycerides 75 mg/dL (<150) 12/29/23 Creatinine 0.78 mg/dL (0.5-1.4) 12/29/23 Blood Urea Nitrogen 14 mg/dL (9-16) 12/29/23 Sodium 139 mmol/L (135-145) 12/29/23 Potassium 3.9 mmol/L (3.3-5.1) 12/29/23 Chloride 101 mmol/L (96-108) 12/29/23 Carbon Dioxide 25 mmol/L (22-29) 12/29/23 Calcium 9.7 mg/dL (8.4-10.2) 12/29/23 AST 16 U/L (5-37) 12/29/23 ALT 22 U/L (0-40) 12/29/23 Total Protein 7.7 g/dL (6.5-8.0) 12/29/23 Albumin 4.7 g/dL (3.5-5.0) 12/29/23 [facility] Medical History Diabetes No pertinent past medical history Surgical History No pertinent past surgical history (~10/16/23) Family History Father Diabetes Mother Cervical cancer Social History Household Members: Spouse Housing: House Are you a primary patient care technician instructor to a significant other at home: No Do you presently have visiting nurse or other home services: No Alcohol intake: current Comment: on occasion Patient Tobacco Use Status: Never used Tobacco e-Cigarette/Vaping Use: Never Used service: No Current occupational status: employed 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 Cognitive needs: No Hearing needs: No Vision needs: Yes (Patient wears glasses) Assessment & Plan Assessment & Plan (1) Type 2 diabetes mellitus with hyperglycemia: Code(s): E11.65 - Type 2 diabetes mellitus with hyperglycemia Category: Medical Qualifiers: Diabetes mellitus intermission coordinator insulin use: without intermission coordinator use Qualified Code(s): E11.65 - Type 2 diabetes mellitus with hyperglycemia Plan: Wt: 94 Kg ( 10/2023 ), 92 kg (12/2023) Est kcal needs as per MSJ: 2500 (40% carb, 30% protein/fat) Est fluid needs as per 25-30 ml/d: 2820 Est prot per day as per 1 g/kg bw: 94 Recommend fiber intake : 8-10 g per day and gradually increase to 25-28 g per day for women and 35-38 g for men or as tolerated Recommend sodium intake per day : less than 2000 mg Educated patient on: ( R = reviewed V = verbalizes understanding N/R = needs review N/A = not applicable Food sources of carbohydrate, adequate serving sizes and its role in various health conditions: R Differences between complex carbohydrates a simple carbohydrates, role of fiber in diet: R Lean protein sources of foods: R Differences between types of fats and role in diet (mono on saturated fat fatty acids, saturated fatty acids, trans fats): R basic Food sources of sodium in salt and healthy modifications for heart health in kidney health: R Vitamins and minerals: R V N/R Healthy plate method concept: R Physical activity: Benefits a precaution: R Hypoglycemia protocol (rule of 15): R V N/R Dietary prevention of Hyperglycemia: R Patient Instructions: Continue working on following healthy plate method Coding Level of Care Code Nutr Indiv Subseq (78985) Diagnoses Type 2 diabetes mellitus with hyperglycemia, without long-term current use of insulin E11.65 Diabetes mellitus intermission coordinator insulin use: without intermission coordinator use Time Spent (min) 20
== END 2023-12-22 13:45 | disposition home or self-care (01) ==
PROVIDERS: PCP Internal Medicine; Visit Provider Dietitian, Registered
DX: E11.65 Type 2 diabetes mellitus with hyperglycemia (principal)

== ENCOUNTER → 2023-12-22 12:50 | Outpatient (BNVA) | payer OTHER, SELFPAY | PROVIDERS: PCP Internal Medicine; Visit Provider Dietitian, Registered | DX: I25.10 Atherosclerotic heart disease of native coronary artery without angina pectoris (principal); E11.65 Type 2 diabetes mellitus with hyperglycemia; Z71.3 Dietary counseling and surveillance | CPT/HCPCS: 97803 ==

== ENCOUNTER 2023-12-22 13:55 | Outpatient (AMB) | payer OTHER, SELFPAY ==
[2023-12-22 13:59] VITALS: BP 116/60; PULSE 88; BMI 29.6
--- NOTE | 2023-12-22 13:59 | MHC.OFFVIS ---
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 No prior history of any coronary artery disease myocardial infarction or cardiomyopathy. It appears that he was diagnosed with diabetes recently. His hemoglobin A1c was more than 12. Suspect he has had this for few years, but however, not known. Any case, he underwent other testing including EKG and echocardiogram which were abnormal. Patient himself denies any cardiac complaints like angina. He states he is active regularly like walking extra with no issues. In the past, he was even riding bicycle for more than 100 miles with no issues, but has not done that in more than 10 years. His weight was also substantially higher in the past. Currently, he is on medications for diabetes. He is also on small dose of CAN inhibitor possibly for renal protection and does not appear that he has a known hypertensive. He was on statins for dyslipidemia, but it seems that he got some lower extremity discomfort as well as forearm discomfort and it has been stopped because of possible side effect. 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 Cognitive needs: No Hearing needs: No Vision needs: Yes (Patient wears glasses) Review of Systems Const Denies weakness ENT Denies dizziness Card Denies chest pain, Denies chest pain with activity, Denies syncope, Denies rapid heart rate, Denies pedal edema, Denies edema, Denies leg edema, Denies lightheadedness, Denies palpitations, Denies dyspnea, Denies dyspnea on exertion and Denies orthopnea Resp Denies cough, Denies dyspnea and Denies dyspnea on exertion GI Denies hematochezia and Denies change in stool character Musc Denies abnormal gait, Denies muscle cramps, Denies muscle weakness, Denies numbness, Denies radiating pain into limb and Denies tingling Neuro Denies abnormal gait, Denies dizziness, Denies syncope, Denies numbness, Denies tingling and Denies weakness Endo Denies palpitations Physical Exam Vital Signs: Last Vital Signs Pulse 88 12/22/23 13:59 BP 116/60 12/22/23 13:59 BMI result Body Mass Index 29.6 Const General: comfortable and no acute distress Orientation/consciousness: patient oriented x3 HEENT Other: Unremarkable Head: Yes normal to inspection Neck Neck: Yes normal visual inspection Chest Chest palpation & inspection: normal inspection of the chest Resp Auscultation: clear to auscultation bilaterally Cardio Palpation: normal PMI Heart sounds: S1 normal heart sound present, S2 normal heart sound present, no gallops, no murmurs and no rubs GI Palpation (GI): Soft to palpation Back/Spine/Pelvis Other: unremarkable Skin General skin exam: no rashes or lesions noted Neuro General: patient oriented x3 Extrem General: Yes normal to inspection Psych Mental Status: mental status grossly normal Assessment & Plan Assessment & Plan (1) CAD (coronary artery disease): Code(s): I25.10 - Atherosclerotic heart disease of [place] coronary artery without angina pectoris Category: Medical Qualifiers: Coronary Disease-Associated Artery/Lesion type: [place] artery [place] vs. 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 In the echocardiogram, LVEF is mildly diminished at 51%. Inferolateral wall, basal inferior and mid anterolateral hypokinesis. Ascending aortic size 4.1 cm. In the stress test, he reached 9.6 Mets exercise capacity and there was no angina or EKG evidence of ischemia. PVCs noted. Overall, newly diagnosed diabetes, abnormal EKG and wall motion abnormalities on echocardiogram. No definitive findings of ischemia on stress test. We need to evaluate further for underlying coronary disease. Can perform coronary CTA. We discussed different modalities including stress echo and stress perfusion imaging but decided on coronary CTA at this time. Will arrange this in the near future. In the interim, avoid any strenuous physical activity while cardiac workup is completed. is also concerned about possible sleep apnea. We discussed about ordering a sleep study but patient would like to get coronary CT 1st. Will follow-up after the above testing. Advised him to contact us any time with questions. Orders: Orders CT Cardiac Coronary Angio Today I25.10 - Atherosclerotic heart disease of [place] coronary artery without angina pectoris Basic Metabolic Panel Today I25.10 - Atherosclerotic heart disease of [place] coronary artery without angina pectoris Coding Level of Care Code New Pt Level 4 (97866) Diagnoses Coronary artery disease involving [place] coronary artery of [place] heart without angina pectoris I25.10 Coronary Disease-Associated Artery/Lesion type: [place] artery [place] vs. transplanted heart: [place] heart Associated angina: without angina Type 2 diabetes mellitus with hyperglycemia, without long-term current use of insulin E11.65 Diabetes mellitus shelter insulin use: without shelter use
== END 2023-12-22 14:41 | disposition home or self-care (01) ==
PROVIDERS: PCP Family Medicine; Visit Provider Internal Medicine
DX: I25.10 Atherosclerotic heart disease of native coronary artery without angina pectoris (principal); E11.65 Type 2 diabetes mellitus with hyperglycemia
CPT/HCPCS: 99214

== ENCOUNTER 2023-12-29 08:38 | Outpatient (REF) | payer OTHER, SELFPAY ==
[2023-12-29 11:15] LABS: Estimated Average Glucose 166 mg/dL; Hemoglobin A1c % 7.4 % (<6.0)
[2023-12-29 11:18] LABS: Alanine Aminotransferase 22 U/L (0-40); Albumin Level 4.7 g/dL (3.5-5.0); Alkaline Phosphatase 57 U/L (39-117); Anion Gap 17 (12-20); Aspartate Amino Transferase 16 U/L (5-37); Bilirubin Total 0.9 mg/dL (0.0-1.0); Blood Urea Nitrogen 14 mg/dL (9-16); Calcium 9.7 mg/dL (8.4-10.2); Carbon Dioxide 25 mmol/L (22-29); Chloride 101 mmol/L (96-108); Cholesterol 167 mg/dL (<200); Estimated Glomerular Filt Rate > 60; Glucose Fasting 156 mg/dL (60-99); HDL Cholesterol 46 mg/dL (>40); LDL Cholesterol Calculated 106 mg/dL (<100); Potassium 3.9 mmol/L (3.3-5.1); Sodium 139 mmol/L (135-145); Total Protein 7.7 g/dL (6.5-8.0); Triglycerides 75 mg/dL (<150)
== END 2023-12-29 08:39 | disposition home or self-care (01) ==
LOC: HO.LAB 08:38
PROVIDERS: PCP Internal Medicine; Visit Provider Internal Medicine
DX: I25.10 Atherosclerotic heart disease of native coronary artery without angina pectoris (principal); I50.22 Chronic systolic (congestive) heart failure; E11.65 Type 2 diabetes mellitus with hyperglycemia
CPT/HCPCS: 36415; 80053; 80061; 83036

== ENCOUNTER 2024-01-05 08:50 | Outpatient (AMB) | payer OTHER, SELFPAY ==
[2024-01-05 08:55] VITALS: BP 129/74; PULSE 80; RESP 12; TEMP 36.5; O2SAT 99; BMI 29.8
--- NOTE | 2024-01-05 08:55 | A.OFFPC_ITS ---
Vital Signs 01/05/24 08:55 Height 5 ft 9 in Weight 202 lb BMI 29.8 BP 129/74 Blood Pressure Location Rt brachial Position Sitting Respiration 12 Pulse 80 Pulse Source Pulse Oximeter Temp 97.7 F Temp Source Temporal Artery Scan Pulse Oximetry (%) 99 Oxygen Delivery Method Room Air Intake Visit Reasons: 1/2 hr annual/DM Intake Note: Patient is here to discuss DM, patient reports frequent sugar spikes with and without eating. Doctor Of Podiatry Required: No Accompanied by: Self / Same As Patient Allergies atorvastatin Allergy (Uncoded 01/05/24 13:27) Muscle cramps albumin Adverse Reaction (Mild, Uncoded 01/05/24 09:00) Vomiting Tobacco use date assessed: 10/06/23 Dental Screening Dental Screen Date: 01/05/24 Did you have a dental visit in the last 12 months?: Yes Did you have a dental problem in the last 6 months where you did not have access to dental care?: No Was dental information given to patient?: Patient has dentist HPI HPI Comments History of Present Illness Details The patient is a 48 year old male with a past medical history of recent abnormal cardiac testing, hyperlipidemia presenting for physical exam. Type 2 diabetes: Diagnosed 3 months ago. A1C 12.7%. He was started on metformin uptitrated to 1000mg twice daily. tolerating well. Using CGM. continues on his low/no carb diet and has been doing well. There is a strong family history of diabetes. Was started on statin therapy with atorvastatin could not tolerate due to intense muscle pain. On CAN-I for renal protection CV: On CAN for renal protection. He had an EKG suggestive of old ischemia and subsequent echocardiogram showed mild systolic dysfunction with moderate hypokinesis. Saw cardiology. Having CT angio ROS CONSTITUTIONAL: Denies weight loss, fever and chills. HEENT: Denies changes in vision and hearing. RESPIRATORY: Denies SOB and cough. CV: Denies palpitations and CP GI: Denies abdominal pain, nausea, vomiting and diarrhea. : Denies dysuria and urinary frequency. MSK: Denies new myalgia and joint pain. SKIN: Denies rash and pruritus. NEUROLOGICAL: Denies headache PSYCHIATRIC: Denies recent changes in mood. PHYSICAL EXAM: GENERAL: Alert and oriented x 3. NAD EYES: EOMI. Anicteric. HENT: Moist mucous membranes. No scleral icterus. No cervical lymphadenopathy. LUNGS: Clear to auscultation bilaterally. CARDIOVASCULAR: Regular rate and rhythm. No murmur. No JVD. ABDOMEN: Soft, non-tender +bs : Normal penis, testes EXTREMITIES: No edema. Non-tender. SKIN: No rashes or lesions. Warm. NEUROLOGIC: No focal neurological deficits. CN II-XII grossly intact PSYCHIATRIC: Cooperative. Appropriate mood and affect . 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 Cognitive needs: No Hearing needs: No Vision needs: Yes (Patient wears glasses) Physical exam (Primary Care) Vital Signs: Last Vital Signs Temp 97.7 F 01/05/24 08:55 Pulse 80 01/05/24 08:55 Resp 12 01/05/24 08:55 BP 129/74 01/05/24 08:55 Pulse Ox 99 01/05/24 08:55 Oxygen Delivery Method Room Air 01/05/24 08:55 BMI result Body Mass Index 29.8 Tobacco/Smoking Status: Tobacco use Status Tobacco use date assessed 10/06/23 01/05/24 09:01 Patient Tobacco Use Status Never used Tobacco 01/05/24 09:01 e-Cigarette/Vaping Use Never Used 01/05/24 09:01 Assessment and Plan Assessment & Plan (1) Type 2 diabetes mellitus with hyperglycemia: Code(s): E11.65 - Type 2 diabetes mellitus with hyperglycemia Qualifiers: Diabetes mellitus intermediate insulin use: without intermediate use Qualified Code(s): E11.65 - Type 2 diabetes mellitus with hyperglycemia Plan: A1C with drastic improvement-will wait until next A1C for any potential m edication changes Trial of pravastatin. Continue CAN. (2) Chronic systolic CHF (congestive heart failure): Code(s): I50.22 - Chronic systolic (congestive) heart failure Plan: continue cardiology follow up (3) Physical exam: Code(s): Z00.00 - Encounter for general adult medical examination without abnormal findings Plan: preventive measures for age discussed. Orders: Orders Hemoglobin A1c 3 Months E11.65 - Type 2 diabetes mellitus with hyperglycemia Comprehensive Met. Panel 3 Months E11.65 - Type 2 diabetes mellitus with hyperglycemia Lipid Panel 3 Months E11.65 - Type 2 diabetes mellitus with hyperglycemia Medications: New pravastatin 20 mg PO BEDTIME 90 tabs 3RF 90 days Discontinued aspirin Discontinued Reason: Doctor's Order 81 mg PO DAILY 90 days 90 tabs 3RF Coding Level of Care Code Est Pt Prev Care 40-64y(99220) Diagnoses Type 2 diabetes mellitus with hyperglycemia, without long-term current use of insulin E11.65 Diabetes mellitus rat exterminator insulin use: without intermediate use Chronic systolic CHF (congestive heart failure) I50.22 Physical exam Z00.00
== END 2024-01-05 09:42 | disposition home or self-care (01) ==
PROVIDERS: PCP Internal Medicine; Visit Provider Internal Medicine
DX: E11.65 Type 2 diabetes mellitus with hyperglycemia (principal); I50.22 Chronic systolic (congestive) heart failure; Z00.00 Encounter for general adult medical examination without abnormal findings
CPT/HCPCS: 99396

== ENCOUNTER 2024-02-25 10:17 | Outpatient (REF) | payer OTHER, SELFPAY ==
[2024-02-25 11:07] LABS: Anion Gap 12 (12-20); Blood Urea Nitrogen 16 mg/dL (9-16); Carbon Dioxide 27 mmol/L (22-29); Chloride 105 mmol/L (96-108); Estimated Glomerular Filt Rate > 60; Glucose Random 164 mg/dL (60-115); Potassium 4.3 mmol/L (3.3-5.1); Sodium 140 mmol/L (135-145)
== END 2024-02-25 10:18 | disposition home or self-care (01) ==
LOC: HO.LAB 10:17
PROVIDERS: PCP Internal Medicine; Visit Provider Internal Medicine
DX: I25.10 Atherosclerotic heart disease of native coronary artery without angina pectoris (principal)
CPT/HCPCS: 36415; 80048

== ENCOUNTER 2024-02-29 12:44 | Outpatient (REF) | payer OTHER, SELFPAY ==
[2024-02-29 13:34] LABS: Basophils Absolute Auto 0.2 X10*3/uL (0.0-0.2); Basophils Percent Auto 1.6 % (0-2); Eosinophils Absolute Auto 2.6 X10*3/uL (0.0-0.4); Eosinophils Percent Auto 23.1 % (0-4); Hematocrit 49.4 % (42.0-52.0); Imm Gran Abs Auto 0.03 X10*3/uL (0.00-0.03); Imm Gran Pct Auto 0.3 % (0.0-0.4); Lymphocytes Absolute Auto 3.1 X10*3/uL (1.2-4.9); MANUAL DIFF FLAG SCAN; Mean Corpuscular HGB Conc 34.4 g/dl (31.0-36.0); Mean Corpuscular Hemoglobin 31.6 pg (27.0-33.0); Mean Corpuscular Volume 91.8 fL (80.0-98.0); Mean Platelet Volume 10.2 fL (9.4-12.4); Monocytes Percent Auto 8.5 % (2-11); Neutrophils Absolute Auto 4.3 x10*3/uL (2.0-8.3); Neutrophils Percent Auto 38.5 % (45-73); Platelet Count 295 X10*3/uL (160-400); Red Blood Count 5.38 X10*6/uL (4.60-5.80); SCAN SMEAR FLAG 1; White Blood Count 11.2 X10*3/uL (4.8-10.8)
[2024-02-29 13:54] LABS: SLIDE REVIEW VERIFIED
[2024-02-29 14:05] LABS: Iron 101 mcg/dL (45-160); Percent Iron Saturation 36 % (15-50); Total Iron Binding Capacity 281 mcg/dL (228-428); Unsaturated Iron Binding 180 ug/dL
[2024-02-29 14:31] LABS: Folate 6.8 ng/mL (> or = 4.0); Vitamin B12 > 2000 pg/mL (200-900)
[2024-03-01 19:33] LABS: Lyme Abs Screen <0.90 index
== END 2024-02-29 12:45 | disposition home or self-care (01) ==
LOC: HO.LAB 12:44
PROVIDERS: PCP Internal Medicine; Visit Provider Internal Medicine
DX: E11.65 Type 2 diabetes mellitus with hyperglycemia (principal); R53.83 Other fatigue
CPT/HCPCS: 36415; 82607; 82746; 83540; 85025; 86617; 86618

== ENCOUNTER 2024-03-09 07:35 | Outpatient (REF) | payer OTHER, SELFPAY ==
[2024-03-09 08:17] LABS: Estimated Average Glucose 140 mg/dL; Hemoglobin A1C 191.6346 umol/L; Hemoglobin A1c % 6.5 % (<6.0); Total Hemoglobin (HGBA1C) 4015.5269 umol/L
[2024-03-09 08:29] LABS: Alanine Aminotransferase 17 U/L (0-40); Albumin Level 4.3 g/dL (3.5-5.0); Alkaline Phosphatase 54 U/L (39-117); Anion Gap 14 (12-20); Aspartate Amino Transferase 14 U/L (5-37); Bilirubin Total 0.9 mg/dL (0.0-1.0); Blood Urea Nitrogen 15 mg/dL (9-16); Calcium 9.5 mg/dL (8.4-10.2); Carbon Dioxide 27 mmol/L (22-29); Chloride 102 mmol/L (96-108); Cholesterol 180 mg/dL (<200); Estimated Glomerular Filt Rate > 60; Glucose Random 127 mg/dL (60-115); HDL Cholesterol 46 mg/dL (>40); LDL Cholesterol Calculated 117 mg/dL (<100); Potassium 3.7 mmol/L (3.3-5.1); Sodium 139 mmol/L (135-145); Total Protein 6.9 g/dL (6.5-8.0); Triglycerides 89 mg/dL (<150)
== END 2024-03-09 07:36 | disposition home or self-care (01) ==
LOC: HO.LAB 07:35
PROVIDERS: PCP Internal Medicine; Visit Provider Internal Medicine
DX: E11.65 Type 2 diabetes mellitus with hyperglycemia (principal); D72.10 Eosinophilia, unspecified
CPT/HCPCS: 80053; 80061; 83036

== ENCOUNTER 2024-03-11 13:34 | Outpatient (AMB) | payer OTHER, SELFPAY ==
--- NOTE | 2024-03-11 13:42 | MHC.PC.OV ---
Vital Signs 03/11/24 13:51 Height 5 ft 9 in Weight 200 lb 4 oz BMI 29.6 BP 128/72 Blood Pressure Location Rt brachial Position Sitting Pulse 90 Pulse Source Pulse Oximeter Pulse Oximetry (%) 99 Oxygen Delivery Method Room Air Intake Visit Reasons: Foot pain, discuss labs Intake Note: Follow up. Discuss labs and CT scan Bookkeeping Teacher Required: No Allergies atorvastatin Allergy (Uncoded 03/11/24 13:43) Muscle cramps albumin Adverse Reaction (Mild, Uncoded 03/11/24 13:43) Vomiting Tobacco use date assessed: 10/06/23 Dental Screening Dental Screen Date: 01/05/24 HPI HPI Comments History of Present Illness Details The patient is a 48 year old male with a past medical history of recent abnormal cardiac testing, hyperlipidemia presenting for follow up Patient has developed ongoing lower extremity pain, burning, tingling. Had upper thigh, leg, foot cramping with atorvastatin, pravastatin. This is different. Has not gotten relief from OTC medications, topicals to date. Recent labs with mild elevation in wbc, eosinophils 23.1%. Type 2 diabetes: Diagnosed 09/2023 with A1C 12.7%. A1C 7.4 one month later, then 6.5 last week. He was started on metformin uptitrated to 1000mg twice daily. tolerating well. Using CGM. continues on his low/no carb diet and has been doing well. There is a strong family history of diabetes. Was started on statin therapy with atorvastatin could not tolerate due to intense muscle pain. On CAN-I for renal protection CV: On CAN for renal protection. He had an EKG suggestive of old ischemia and subsequent echocardiogram showed mild systolic dysfunction with moderate hypokinesis. Saw cardiology. Had CT angio with no clinically significant stenosis. ROS CONSTITUTIONAL: Denies weight loss, fever and chills. HEENT: Denies changes in vision and hearing. RESPIRATORY: Denies SOB and cough. CV: Denies palpitations and CP GI: Denies abdominal pain, nausea, vomiting and diarrhea. : Denies dysuria and urinary frequency. MSK: Denies new myalgia and joint pain. SKIN: Denies rash and pruritus. NEUROLOGICAL: Denies headache PSYCHIATRIC: Denies recent changes in mood. PHYSICAL EXAM: GENERAL: Alert and oriented x 3. NAD EYES: EOMI. Anicteric. HENT: Moist mucous membranes. No scleral icterus. No cervical lymphadenopathy. LUNGS: Clear to auscultation bilaterally. CARDIOVASCULAR: Regular rate and rhythm. No murmur. No JVD. ABDOMEN: Soft, non-tender +bs : Normal penis, testes EXTREMITIES: No edema. Non-tender. SKIN: No rashes or lesions. Warm. NEUROLOGIC: No focal neurological deficits. CN II-XII grossly intact PSYCHIATRIC: Cooperative. Appropriate mood and affect . [facility] Medical History Diabetes No pertinent past medical history Surgical History No pertinent past surgical history (~10/16/23) Family History Father Diabetes Mother Cervical cancer Social History Household Members: Spouse Housing: House Are you a primary healthcare administrator to a significant other at home: No Do you presently have visiting nurse or other home services: No Alcohol intake: current Comment: on occasion Patient Tobacco Use Status: Never used Tobacco e-Cigarette/Vaping Use: Never Used service: No Current occupational status: employed 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 Cognitive needs: No Hearing needs: No Vision needs: Yes (Patient wears glasses) Questionnaire PHQ-9 Over the last 2 weeks, how often have you been bothered by any of the following problems? 1. Little interest or pleasure in doing things: not at all Source: Developed by Drs. Douglas Meyer, Colette Mcclure, Gino Mon and colleagues, with an educational britta from [employer]. Thrive Questionnaire Date Thrive assessed: 03/08/24 Do you have trouble paying your heating and electricity bill?: I choose not to answer this question Do you have trouble taking care of your child, family member or friend?: I choose not to answer this question Do you have trouble with day-to-day activities such as bathing, preparing meals, shopping, managing finances, etc.?: I choose not to answer this question Are you currently unemployed and looking for a job?: I choose not to answer this question Are you interested in more education?: I choose not to answer this question Please select the resources that you would like help with: None Currently or been in a relationship where the following occur: I choose not to answer THRIVE Score: 0 AUDIT C Alcohol Use Questionnaire (AUDIT-C) 1. How often do you have a drink containing alcohol?: Never Total Score: 0 BALJIT-7 AMB Questionnaire BALJIT-7 Feeling nervous, anxious, or on edge: 0 = Not at all Not being able to stop or control worryin = Not at all Worrying too much about different things: 0 = Not at all Trouble relaxin = Not at all Being so restless that it is hard to sit still: 0 = Not at all Becoming easily annoyed or irritable: 0 = Not at all Feeling afraid as if something awful might happen: 0 = Not at all Total BALJIT-7 score (0-4 normal; 5-9 mild; 10-14 moderate; 15-21 severe): 0 Source: Developed by Drs. Douglas Myeer, Colette Mcclure, Gino Mon and colleagues, with an educational britta from [employer]. Physical exam (Primary Care) Vital Signs: Last Vital Signs Pulse 90 03/11/24 13:51 BP 128/72 03/11/24 13:51 Pulse Ox 99 03/11/24 13:51 Oxygen Delivery Method Room Air 03/11/24 13:51 BMI result Body Mass Index 29.6 Tobacco/Smoking Status: Tobacco use Status Tobacco use date assessed 10/06/23 03/11/24 13:45 Patient Tobacco Use Status Never used Tobacco 03/11/24 13:45 e-Cigarette/Vaping Use Never Used 03/11/24 13:45 Thrive Assessment: Date of Thrive Assessment Date Thrive assessed 03/08/24 03/11/24 13:45 Currently or been in a relationship where the following occur: I choose not to answer Coding Level of Care Code Est Pt Level 5 (15243) Diagnoses Pain in both lower extremities M79.604; M79.605 Laterality: bilateral Bilateral foot pain M79.671; M79.672 Eosinophilia, unspecified type D72.10 Eosinophilia type: unspecified eosinophilia Time Spent (min) 42 Assessment & Plan Assessment & Plan (1) Lower extremity pain: Code(s): M79.606 - Pain in leg, unspecified Category: Medical Qualifiers: Laterality: bilateral Qualified Code(s): M79.604 - Pain in right leg; M79.605 - Pain in left leg Plan: u/s ordered EMG ordered Possible TINS (2) Bilateral foot pain: Code(s): M79.671 - Pain in right foot; M79.672 - Pain in left foot Category: Medical Plan: see above (3) Eosinophilia: Code(s): D72.10 - Eosinophilia, unspecified Category: Medical Qualifiers: Eosinophilia type: unspecified eosinophilia Qualified Code(s): D72.10 - Eosinophilia, unspecified Plan: Peripheral smear fairly reassuring recent ct chest Denies GERD, GI issues, unintentional weight loss, fevers Orders: Orders NE electromyogram (EMG) 03/11/24 G57.90 - Unspecified mononeuropathy of unspecified lower limb, M79.606 - Pain in leg, unspecified, M79.671 - Pain in right foot, M79.672 - Pain in left foot US arterial duplex LE BI 03/11/24 G57.90 - Unspecified mononeuropathy of unspecified lower limb, M79.606 - Pain in leg, unspecified, M79.671 - Pain in right foot, M79.672 - Pain in left foot Referrals Hematology & Oncology Referral D72.10 - Eosinophilia, unspecified Medications: New rosuvastatin 5 mg PO DAILY 90 tabs 3RF Refilled FreeStyle Camilo 3 Sensor (blood-glucose sensor) As directed 6 ea 3RF NS E11.65 - Type 2 diabetes mellitus with hyperglycemia
[2024-03-11 13:51] VITALS: BP 128/72; PULSE 90; O2SAT 99; BMI 29.6
== END 2024-03-11 14:37 | disposition home or self-care (01) ==
PROVIDERS: PCP Internal Medicine; Visit Provider Internal Medicine
DX: M79.604 Pain in right leg (principal); M79.605 Pain in left leg; M79.671 Pain in right foot; M79.672 Pain in left foot; D72.10 Eosinophilia, unspecified

== ENCOUNTER → 2024-03-11 13:34 | Outpatient (BNVA) | payer OTHER, SELFPAY | PROVIDERS: PCP Internal Medicine; Visit Provider Internal Medicine ==

== ENCOUNTER 2024-03-28 13:34 | Outpatient (REF) | payer OTHER, SELFPAY ==
--- NOTE | ~2024-03-28 | US_ITS ---
EXAMINATION: Noninvasive assessment of the bilateral lower extremities with ARTERIAL DUPLEX and ANKLE BRACHIAL INDICES (ABIs). CLINICAL INFORMATION: Bilateral foot pain TECHNIQUE: Duplex Doppler techniques with waveform analysis and measurement of velocities in the bilateral common femoral, profunda femoris, superficial femoral, popliteal and tibial arteries were performed. COMPARISON: None FINDINGS: DIRECT DUPLEX DOPPLER FINDINGS: RIGHT LEG: Common femoral artery: 78.0 cm/s, phasicity: Triphasic Profunda femoris artery: 44.4 cm/s, phasicity: Triphasic Superficial femoral artery (proximal): 70.4 cm/s, phasicity: Triphasic Superficial femoral artery (mid): 79.4 cm/s, phasicity: Triphasic Superficial femoral artery (distal): 57.5 cm/s, phasicity: Triphasic Popliteal artery: 84.4 cm/s, phasicity: Triphasic Posterior tibial artery: 80.3 cm/s, phasicity: Triphasic Anterior tibial artery: 33.4 cm/s, phasicity: Triphasic Dorsalis pedis artery: 58.6 cm/s, phasicity:Triphasic LEFT LEG: Common femoral artery: 64.5 cm/s, phasicity: Triphasic Profunda femoris artery: 48.7 cm/s, phasicity: Triphasic Superficial femoral artery (proximal): 73.3 cm/s, phasicity: Triphasic Superficial femoral artery (mid): 66.8 cm/s, phasicity: Triphasic Superficial femoral artery (distal): 62.1 cm/s, phasicity: Triphasic Popliteal artery: 61.0 cm/s, phasicity: Triphasic Posterior tibial artery: 74.5 cm/s, phasicity: Triphasic Peroneal artery: 57.5 cm/s, phasicity: Triphasic Anterior tibial artery: 42.8 cm/s, phasicity: Triphasic Dorsalis pedis artery: 93.8 cm/s, phasicity: Triphasic US/US arterial duplex LE BI IMPRESSION: RIGHT LEG: Normal arterial flow throughout the right lower extremity. LEFT LEG: Normal arterial flow throughout the left lower extremity. Electronically signed by: Chavo Spence MD 04/20/2024 12:35 PM [facility] [place]
== END 2024-03-28 13:35 | disposition home or self-care (01) ==
LOC: HO.US 13:34
PROVIDERS: PCP Internal Medicine; Visit Provider Internal Medicine
DX: M79.671 Pain in right foot (principal); M79.672 Pain in left foot; G57.90 Unspecified mononeuropathy of unspecified lower limb
CPT/HCPCS: 93925

== ENCOUNTER → 2024-04-04 10:15 | Outpatient (BNV) | payer OTHER, SELFPAY | PROVIDERS: PCP Internal Medicine; Referring Provider Internal Medicine; Visit Provider Internal Medicine Medical Oncology | DX: D72.10 Eosinophilia, unspecified (principal) | CPT/HCPCS: 99204 ==

== ENCOUNTER 2024-04-06 08:51 | Outpatient (AMB) | payer OTHER, SELFPAY ==
[2024-04-06 08:52] VITALS: BP 102/56; PULSE 72; BMI 29.6
--- NOTE | 2024-04-06 08:52 | MHC.OFFVIS ---
Vital Signs 04/06/24 08:52 Height 5 ft 9 in Weight 200 lb 2.876 oz BMI 29.6 BP 102/56 L Pulse 72 Pulse Source Pulse Oximeter Intake Visit Reasons: f/up cta Toe Stripper Required: No Accompanied by: Self / Same As Patient Allergies atorvastatin Allergy (Uncoded 04/04/24 10:22) Muscle cramps albumin Adverse Reaction (Mild, Uncoded 04/04/24 10:22) Vomiting Medication List - Last Reconciled 04/06/24 by Toy Burger MD aspirin 81 mg PO DAILY empagliflozin (Jardiance) 10 mg PO QAM 90 days FreeStyle Camilo 14 Day [employer] (flash glucose scanning reader) As directed NS FreeStyle Camilo 14 Day Sensor (flash glucose sensor) As directed NS FreeStyle Camilo 3 Plus Sensor (blood-glucose sensor) As directed NS FreeStyle Camilo 3 [employer] (blood-glucose meter,continuous) As directed NS FreeStyle Camilo 3 Sensor (blood-glucose sensor) As directed NS FreeStyle Precision [place] Strips (blood sugar diagnostic) As directed once daily NS lisinopril 2.5 mg PO DAILY 90 days metformin ER 1,000 mg (2 x 500 mg) PO BID 90 days rosuvastatin 5 mg PO DAILY HPI Comments Details: Barrington returns for follow-up. Few months back, seen in cardiac evaluation because of uncontrolled diabetes. However, no known cardiac issues. It appears that he was diagnosed with diabetes recently. His hemoglobin A1c was more than 12 but it has improved a lot since then. Suspect he has had this for few years, but however, not known. Following this, he underwent comprehensive cardiac workup including an EKG, echocardiogram as well as coronary CTA. He states he feels fine. Has been losing weight and getting his diabetes under control. In the past, he was much more overweight but apparently he was also very active and could even ride a bicycle for more than 100 miles with no issues. He has not done that in many years now. [facility] Medical History Diabetes No pertinent past medical history Surgical History No pertinent past surgical history (~10/16/23) Family History Father Diabetes Mother Cervical cancer Social History (Updated 04/06/24 @ 08:55 by India Kramer CMA) Household Members: Spouse Housing: House Are you a primary certified social workers in health care to a significant other at home: No Do you presently have visiting nurse or other home services: No Alcohol intake: former Patient Tobacco Use Status: Never used Tobacco e-Cigarette/Vaping Use: Never Used service: No Current occupational status: employed 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 Cognitive needs: No Hearing needs: No Vision needs: Yes (Patient wears glasses) Review of Systems Const Denies chills, Denies fatigue, Denies fever(s), Denies weight gain and Denies weight loss ENT Denies dizziness Card Denies chest pain, Denies leg edema, Denies lightheadedness, Denies palpitations, Denies dyspnea on exertion, Denies orthopnea and Denies other Resp Denies cough and Denies dyspnea on exertion GI Denies hematochezia and Denies change in stool character Musc Denies abnormal gait, Denies muscle weakness, Denies numbness, Denies radiating pain into limb and Denies tingling Neuro Denies abnormal gait, Denies dizziness, Denies numbness and Denies tingling Endo Denies fatigue and Denies palpitations Physical Exam Vital Signs: Last Vital Signs Pulse 72 04/06/24 08:52 BP 102/56 L 04/06/24 08:52 BMI result Body Mass Index 29.6 Const General: comfortable and no acute distress Orientation/consciousness: patient oriented x3 HEENT Other: Unremarkable Head: Yes normal to inspection Neck Neck: Yes normal visual inspection Chest Chest palpation & inspection: normal inspection of the chest Resp Auscultation: clear to auscultation bilaterally Cardio Palpation: normal PMI Heart sounds: S1 normal heart sound present, S2 normal heart sound present, no gallops, no murmurs and no rubs GI Palpation (GI): Soft to palpation Back/Spine/Pelvis Other: unremarkable Skin General skin exam: no rashes or lesions noted Neuro General: patient oriented x3 Extrem General: Yes normal to inspection Psych Mental Status: mental status grossly normal Assessment & Plan Assessment & Plan (1) CAD (coronary artery disease): Code(s): I25.10 - Atherosclerotic heart disease of [place] coronary artery without angina pectoris Category: Medical Qualifiers: Associated angina: without angina Coronary Disease-Associated Artery/Lesion type: [place] artery [place] vs. transplanted heart: [place] heart Qualified Code(s): I25.10 - Atherosclerotic heart disease of [place] coronary artery without angina pectoris (2) Type 2 diabetes mellitus with hyperglycemia: Code(s): E11.65 - Type 2 diabetes mellitus with hyperglycemia Category: Medical Qualifiers: Diabetes mellitus elevator adjuster insulin use: without elevator adjuster use Qualified Code(s): E11.65 - Type 2 diabetes mellitus with hyperglycemia (3) Ascending aorta enlargement: Code(s): I77.89 - Other specified disorders of arteries and arterioles Category: Medical Plan In the EKG, underlying rhythm is sinus at 96/Min; possible left atrial enlargement; cannot exclude old inferior infarct; normal DC and corrected QT. In the echocardiogram, low normal LVEF at 51%. Wall motion abnormalities described in the inferolateral/anterolateral wall but upon 2nd review, probably just an over call unlikely within normal limits. Ascending aortic size was 4.1 cm. In the stress test, he reached 9.6 Mets exercise capacity and there was no angina or EKG evidence of ischemia. PVCs noted. In the coronary CTA, minimal to mild stenosis noted in the LAD/RCA. Findings discussed with patient. Main recommendation is still aggressive diabetes management. His hemoglobin A1c is already well controlled. Lipids are somewhat borderline and he is not able tolerate higher dose of statins. It seems that his PCP actually prescribed Praluent and I recommended that he consider it. With regard to the low normal LVEF, we may recheck that in a few months. Suspect wall motion abnormalities are not true findings. With regard to this slight ascending aortic enlargement, again may recheck an echocardiogram. There is a question of PVCs and we can do a Holter monitor for that. Follow-up in 6 months. Orders: Orders CA echo transthoracic complete 6 Months I25.10 - Atherosclerotic heart disease of [place] coronary artery without angina pectoris ECG 3 day holter monitor 6 Months I49.3 - Ventricular premature depolarization Coding Level of Care Code Est Pt Level 4 (76215) Diagnoses Coronary artery disease involving [place] coronary artery of [place] heart without angina pectoris I25.10 Associated angina: without angina Coronary Disease-Associated Artery/Lesion type: [place] artery [place] vs. transplanted heart: [place] heart Type 2 diabetes mellitus with hyperglycemia, without long-term current use of insulin E11.65 Diabetes mellitus mcc insulin use: without elevator adjuster use Ascending aorta enlargement I77.89
== END 2024-04-06 09:15 | disposition home or self-care (01) ==
PROVIDERS: PCP Internal Medicine; Visit Provider Internal Medicine
DX: I25.10 Atherosclerotic heart disease of native coronary artery without angina pectoris (principal); E11.65 Type 2 diabetes mellitus with hyperglycemia; I77.89 Other specified disorders of arteries and arterioles
CPT/HCPCS: 99214

== ENCOUNTER 2024-06-09 09:13 | Outpatient (REF) | payer OTHER, SELFPAY ==
[2024-06-09 10:58] LABS: Creatinine Urine 126.01 mg/dL; Microalbum/Creatinine Ratio Ur 11.1 ug/mg cr (<30)
[2024-06-09 10:59] LABS: Estimated Average Glucose 143 mg/dL; Hemoglobin A1C 213.4799 umol/L; Hemoglobin A1c % 6.6 % (<6.0); Total Hemoglobin (HGBA1C) 4374.3896 umol/L
[2024-06-09 11:23] LABS: Alanine Aminotransferase 23 U/L (0-40); Albumin Level 4.2 g/dL (3.5-5.0); Alkaline Phosphatase 48 U/L (39-117); Anion Gap 13 (12-20); Aspartate Amino Transferase 19 U/L (5-37); Blood Urea Nitrogen 17 mg/dL (9-16); Calcium 8.7 mg/dL (8.4-10.2); Carbon Dioxide 23 mmol/L (22-29); Chloride 107 mmol/L (96-108); Cholesterol 124 mg/dL (<200); Estimated Glomerular Filt Rate > 60; Glucose Random 128 mg/dL (60-115); HDL Cholesterol 44 mg/dL (>40); LDL Cholesterol Calculated 65 mg/dL (<100); Potassium 4.1 mmol/L (3.3-5.1); Sodium 139 mmol/L (135-145); Total Protein 7.1 g/dL (6.5-8.0); Triglycerides 76 mg/dL (<150)
== END 2024-06-09 09:14 | disposition home or self-care (01) ==
LOC: HO.LAB 09:13
PROVIDERS: PCP Internal Medicine; Visit Provider Internal Medicine
DX: E11.65 Type 2 diabetes mellitus with hyperglycemia (principal)
CPT/HCPCS: 36415; 80053; 80061; 82043; 82570; 83036

== ENCOUNTER 2024-06-20 10:01 | Outpatient (AMB) | payer OTHER, SELFPAY ==
--- NOTE | 2024-06-20 10:08 | MHC.PC.OV ---
Vital Signs 06/20/24 10:12 Height 5 ft 9 in Weight 202 lb 6 oz BMI 29.9 BP 116/76 Blood Pressure Location Rt brachial Position Sitting Pulse 82 Pulse Source Pulse Oximeter Pulse Oximetry (%) 97 Oxygen Delivery Method Room Air Intake Visit Reasons: 1/2 h follow up Intake Note: Follow up Complex Commercial Litigation Paralegal Required: No Allergies atorvastatin Allergy (Uncoded 06/20/24 10:08) Muscle cramps albumin Adverse Reaction (Mild, Uncoded 06/20/24 10:08) Vomiting Medication List - Last Reconciled 06/20/24 by Lin Rivers MD aspirin 81 mg PO DAILY empagliflozin (Jardiance) 10 mg PO QAM 90 days FreeStyle Camilo 14 Day Vermilion (flash glucose scanning reader) As directed NS FreeStyle Camilo 14 Day Sensor (flash glucose sensor) As directed NS FreeStyle Camilo 3 Plus Sensor (blood-glucose sensor) As directed NS FreeStyle Camilo 3 Vermilion (blood-glucose meter,continuous) As directed NS FreeStyle Camilo 3 Sensor (blood-glucose sensor) As directed NS FreeStyle Precision Naga Strips (blood sugar diagnostic) As directed once daily NS lisinopril 2.5 mg PO DAILY 90 days metformin ER 500 mg PO TID rosuvastatin 5 mg PO DAILY Tobacco use date assessed: 10/06/23 Dental Screening Dental Screen Date: 01/05/24 HPI HPI Comments History of Present Illness Details The patient is a 48 year old male with a past medical history of recent abnormal cardiac testing, hyperlipidemia presenting for follow up In past six months developed lower extremity pain, burning, tingling. Had upper thigh, leg, foot cramping with atorvastatin, pravastatin. Had not gotten relief from OTC medications, topicals to date. started treatment plan with [facility] included near right therapy, supplements. Pain levels have decreased but not gone. Labs with mild elevation in wbc, eosinophils 23.1%. Saw hematology. Labs essentially normalized Type 2 diabetes: Diagnosed 09/2023 with A1C 12.7%. A1C 7.4 one month later, 05/2024 6.6. On metformin 1500mg. Was using CGM but readings were quite off fingersticks. continues on his low/no carb diet and has been doing well. There is a strong family history of diabetes. Was started on statin therapy with atorvastatin could not tolerate due to intense muscle pain, same with pravastatin. Able to tolerate 5mg crestor. On CAN-I for renal protection CV: On CAN for renal protection. He had an EKG suggestive of old ischemia and subsequent echocardiogram showed mild systolic dysfunction with moderate hypokinesis. Saw cardiology. Had CT angio with no clinically significant stenosis. Will follow aortic dilation. Now on jardiance, tolerating well ROS see HPI PHYSICAL EXAM: GENERAL: Alert and oriented x 3. NAD EYES: EOMI. Anicteric. HENT: Moist mucous membranes. No scleral icterus. No cervical lymphadenopathy. LUNGS: Clear to auscultation bilaterally. CARDIOVASCULAR: Regular rate and rhythm. No murmur. No JVD. ABDOMEN: Soft, non-tender +bs : Normal penis, testes EXTREMITIES: No edema. Non-tender. SKIN: No rashes or lesions. Warm. NEUROLOGIC: No focal neurological deficits. CN II-XII grossly intact PSYCHIATRIC: Cooperative. Appropriate mood and affect . [facility] Medical History Diabetes No pertinent past medical history Surgical History No pertinent past surgical history (~10/16/23) Family History Father Diabetes Mother Cervical cancer Social History (Updated 06/20/24 @ 10:15 by Marlene Esquivel CMA) Household Members: Spouse Housing: House Are you a primary home health caregiver to a significant other at home: No Do you presently have visiting nurse or other home services: No Alcohol intake: former Patient Tobacco Use Status: Never used Tobacco e-Cigarette/Vaping Use: Never Used service: No Current occupational status: employed 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 Cognitive needs: No Hearing needs: No Vision needs: Yes (Patient wears glasses) Questionnaire Thrive Questionnaire Date Thrive assessed: 03/08/24 I am a: Patient What is your living situation today?: I choose not to answer this question Within the past 12 months, did the food you bought not last and you didn't have the money to get more?: I choose not to answer this question Within the past 12 months, did you worry whether your food would run out before you got money to buy more?: I choose not to answer this question Do you have trouble paying for medicines?: I choose not to answer this question Do you have trouble getting transportation to medical appointments?: I choose not to answer this question Do you have trouble paying your heating and electricity bill?: I choose not to answer this question Do you have trouble taking care of your child, family member or friend?: I choose not to answer this question Do you have trouble with day-to-day activities such as bathing, preparing meals, shopping, managing finances, etc.?: I choose not to answer this question Are you currently unemployed and looking for a job?: I choose not to answer this question Are you interested in more education?: I choose not to answer this question Please select the resources that you would like help with: None Currently or been in a relationship where the following occur: I choose not to answer THRIVE Score: 0 AUDIT C Alcohol Use Questionnaire (AUDIT-C) 1. How often do you have a drink containing alcohol?: Never Total Score: 0 BALJIT-7 AMB Questionnaire BALJIT-7 Feeling nervous, anxious, or on edge: 0 = Not at all Not being able to stop or control worryin = Not at all Worrying too much about different things: 0 = Not at all Trouble relaxin = Not at all Being so restless that it is hard to sit still: 0 = Not at all Becoming easily annoyed or irritable: 0 = Not at all Feeling afraid as if something awful might happen: 0 = Not at all Total BALJIT-7 score (0-4 normal; 5-9 mild; 10-14 moderate; 15-21 severe): 0 Source: Developed by Drs. Douglas Meyer, Colette Mcclure, Gino Mon and colleagues, with an educational britta from [employer]. Physical exam (Primary Care) Vital Signs: Last Vital Signs Pulse 82 06/20/24 10:12 BP 116/76 06/20/24 10:12 Pulse Ox 97 06/20/24 10:12 Oxygen Delivery Method Room Air 06/20/24 10:12 BMI result Body Mass Index 29.9 Tobacco/Smoking Status: Tobacco use Status Tobacco use date assessed 10/06/23 06/20/24 10:11 Patient Tobacco Use Status Never used Tobacco 06/20/24 10:15 e-Cigarette/Vaping Use Never Used 06/20/24 10:15 Thrive Assessment: Date of Thrive Assessment Date Thrive assessed 03/08/24 06/20/24 10:11 Currently or been in a relationship where the following occur: I choose not to answer Coding Level of Care Code Est Pt Level 4 (01501) Diagnoses Neuropathy involving both lower extremities G57.93 Laterality: bilateral Controlled type 2 diabetes mellitus with diabetic polyneuropathy, without long-term current use of insulin E11.42 Diabetes mellitus jail insulin use: without terminal gauger supervisor use Diabetes mellitus complication status: with neurologic complications Diabetes mellitus complication detail: with polyneuropathy Assessment & Plan Assessment & Plan (1) Lower extremity neuropathy: Code(s): G57.90 - Unspecified mononeuropathy of unspecified lower limb Category: Medical Qualifiers: Laterality: bilateral Qualified Code(s): G57.93 - Unspecified mononeuropathy of bilateral lower limbs Plan: Doing well with therapy (2) Controlled type 2 diabetes mellitus: Code(s): E11.9 - Type 2 diabetes mellitus without complications Category: Medical Qualifiers: Diabetes mellitus jail insulin use: without terminal gauger supervisor use Diabetes mellitus complication status: with neurologic complications Diabetes mellitus complication detail: with polyneuropathy Qualified Code(s): E11.42 - Type 2 diabetes mellitus with diabetic polyneuropathy Plan: continue current medications Orders: Orders Hemoglobin A1c Today E11.65 - Type 2 diabetes mellitus with hyperglycemia IRON PROFILE Today E11.65 - Type 2 diabetes mellitus with hyperglycemia Lipid Panel Today E11.65 - Type 2 diabetes mellitus with hyperglycemia Comprehensive Met. Panel Today E11.65 - Type 2 diabetes mellitus with hyperglycemia Medications: Changed From metformin ER Take one tablet oral twice daily for one week then increase to 2 tab oral twice daily 500 mg PO TID To metformin ER 1,500 mg PO DAILY Discontinued FreeStyle Camilo 14 Day Vermilion (flash glucose scanning reader) Discontinued Reason: Doctor's Order As directed 1 ea 0RF NS E11.65 - Type 2 diabetes mellitus with hyperglycemia FreeStyle Camilo 3 Vermilion (blood-glucose meter,continuous) Discontinued Reason: Doctor's Order As directed 1 ea 0RF NS E11.65 - Type 2 diabetes mellitus with hyperglycemia
[2024-06-20 10:12] VITALS: BP 116/76; PULSE 82; O2SAT 97; BMI 29.9
== END 2024-06-20 10:58 | disposition home or self-care (01) ==
PROVIDERS: PCP Internal Medicine; Visit Provider Internal Medicine
DX: G57.93 Unspecified mononeuropathy of bilateral lower limbs (principal); E11.42 Type 2 diabetes mellitus with diabetic polyneuropathy

== ENCOUNTER 2024-06-23 09:00 | Outpatient (AMB) | payer OTHER, SELFPAY ==
--- NOTE | 2024-06-23 09:25 | A.OFFVIS_ITS ---
VS Expanded 06/23/24 11:00 Height 5 ft 9 in Weight 202 lb 9 oz BMI 29.9 Intake Visit Reasons: T2DM/Confirmed Allergies atorvastatin Allergy (Uncoded 06/20/24 10:08) Muscle cramps albumin Adverse Reaction (Mild, Uncoded 06/20/24 10:08) Vomiting Nutrition Presentation Details: Pt presents for MNT f/u T2DM Pt reports doing well, no concerns expressed today working on meal planning, including fiber rich foods and watching portion sizes for glucose control. BS Monitoring Most Recent Diabetes Results: Microalb/Creat Ratio 11.1 ug/mg cr (<30) 06/09/24 Cholesterol 124 mg/dL (<200) 06/09/24 HDL Cholesterol 44 mg/dL (>40) 06/09/24 Triglycerides 76 mg/dL (<150) 06/09/24 Creatinine 0.66 mg/dL (0.5-1.4) 06/09/24 Blood Urea Nitrogen 17 mg/dL (9-16) H 06/09/24 Sodium 139 mmol/L (135-145) 06/09/24 Potassium 4.1 mmol/L (3.3-5.1) 06/09/24 Chloride 107 mmol/L (96-108) 06/09/24 Carbon Dioxide 23 mmol/L (22-29) 06/09/24 Calcium 8.7 mg/dL (8.4-10.2) 06/09/24 AST 19 U/L (5-37) 06/09/24 ALT 23 U/L (0-40) 06/09/24 Total Protein 7.1 g/dL (6.5-8.0) 06/09/24 Albumin 4.2 g/dL (3.5-5.0) 06/09/24 [facility] Medical History Diabetes No pertinent past medical history Surgical History No pertinent past surgical history (~10/16/23) Family History Father Diabetes Mother Cervical cancer Social History (Updated 06/20/24 @ 10:15 by Marlene Esquivel CMA) Household Members: Spouse Housing: House Are you a primary life care planner to a significant other at home: No Do you presently have visiting nurse or other home services: No Alcohol intake: former Patient Tobacco Use Status: Never used Tobacco e-Cigarette/Vaping Use: Never Used service: No Current occupational status: employed 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 Cognitive needs: No Hearing needs: No Vision needs: Yes (Patient wears glasses) Assessment & Plan Assessment & Plan (1) Type 2 diabetes mellitus with hyperglycemia: Code(s): E11.65 - Type 2 diabetes mellitus with hyperglycemia Category: Medical Qualifiers: Diabetes mellitus intermediate school teacher insulin use: without intermediate school teacher use Qualified Code(s): E11.65 - Type 2 diabetes mellitus with hyperglycemia Plan: Wt: 94 Kg ( 10/2023 ), 92 kg (12/2023), 92 kg (06/18) Est kcal needs as per MSJ: 2500 (40% carb, 30% protein/fat) Est fluid needs as per 25-30 ml/d: 2820 Est prot per day as per 1 g/kg bw: 94 Recommend fiber intake : 8-10 g per day and gradually increase to 25-28 g per day for women and 35-38 g for men or as tolerated Recommend sodium intake per day : less than 2000 mg Educated patient on: ( R = reviewed V = verbalizes understanding N/R = needs review N/A = not applicable * Food sources of carbohydrate, adequate serving sizes and its role in various health conditions: R * Differences between complex carbohydrates a simple carbohydrates, role of fiber in diet: R * Lean protein sources of foods: R * Differences between types of fats and role in diet (mono on saturated fat fatty acids, saturated fatty acids, trans fats): R basic * Food sources of sodium in salt and healthy modifications for heart health in kidney health: R * Vitamins and minerals: R V N/R * Healthy plate method concept: R * Physical activity: Benefits a precaution: R * Hypoglycemia protocol (rule of 15): R V * Dietary prevention of Hyperglycemia: R Patient Instructions: Continue choosing lean protein foods and fiber rich foods Keep hydrated by having water, diluted juices with water herb/fruit flavor infused water keep physically active , 30-60 min daily or as tolerated Coding Level of Care Code Nutr Indiv Subseq (76657) Diagnoses Type 2 diabetes mellitus with hyperglycemia, without long-term current use of insulin E11.65 Diabetes mellitus fci insulin use: without intermediate school teacher use Time Spent (min) 30
[2024-06-23 11:00] VITALS: BMI 29.9
== END 2024-06-23 10:08 | disposition home or self-care (01) ==
PROVIDERS: PCP Internal Medicine; Visit Provider Dietitian, Registered
DX: E11.65 Type 2 diabetes mellitus with hyperglycemia (principal)

== ENCOUNTER → 2024-06-23 09:00 | Outpatient (BNVA) | payer OTHER, SELFPAY | PROVIDERS: PCP Internal Medicine; Visit Provider Dietitian, Registered | DX: E11.65 Type 2 diabetes mellitus with hyperglycemia (principal); Z71.3 Dietary counseling and surveillance | CPT/HCPCS: 97803 ==

== ENCOUNTER 2024-10-04 12:31 | Outpatient (AMB) | payer OTHER, SELFPAY ==
[2024-10-04 12:47] VITALS: BP 124/68; PULSE 89; BMI 29.9
--- NOTE | 2024-10-04 12:47 | A.OFFVIS_ITS ---
Vital Signs 10/04/24 12:47 Height 5 ft 9 in Weight 202 lb 13.204 oz BMI 29.9 BP 124/68 Blood Pressure Location Lt brachial Position Sitting Pulse 89 Pulse Source Monitor Intake Visit Reasons: 6m s/p echo/holter Allergies atorvastatin Allergy (Uncoded 06/20/24 10:08) Muscle cramps albumin Adverse Reaction (Mild, Uncoded 06/20/24 10:08) Vomiting Medication List - Last Reconciled 10/04/24 by Toy Burger MD aspirin 81 mg PO DAILY empagliflozin (Jardiance) 10 mg PO QAM 90 days FreeStyle Camilo 14 Day Sensor (flash glucose sensor) As directed NS FreeStyle Camilo 3 Plus Sensor (blood-glucose sensor) As directed NS FreeStyle Camilo 3 Sensor (blood-glucose sensor) As directed NS FreeStyle Precision Naga Strips (blood sugar diagnostic) As directed once daily NS lisinopril 2.5 mg PO DAILY 90 days metformin ER 1,500 mg PO DAILY rosuvastatin 5 mg PO DAILY HPI Comments Details: [place]rington returns for follow-up. In 2022, seen in cardiac evaluation because of uncontrolled diabetes which was a new diagnosis. His hemoglobin A1c was more than 12 but it has improved a lot since then. Suspect he has had this for few years, but however, not known. Following this, he underwent comprehensive cardiac workup including an EKG, echocardiogram as well as coronary CTA. He states he feels fine. Has been losing weight and getting his diabetes under control. In the past, he was much more overweight but apparently he was also very active and could even ride a bicycle for more than 100 miles with no iss ues. He has not done that in many years now. Overall, since last seen he feels good. No cardiac issues. [facility] Medical History Diabetes No pertinent past medical history Surgical History No pertinent past surgical history (~10/16/23) Family History Father Diabetes Mother Cervical cancer Social History (Updated 06/20/24 @ 10:15 by Marlene Esquivel CMA) Household Members: Spouse Housing: House Are you a primary district manager primary care sales to a significant other at home: No Do you presently have visiting nurse or other home services: No Alcohol intake: former Patient Tobacco Use Status: Never used Tobacco e-Cigarette/Vaping Use: Never Used service: No Current occupational status: employed 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 Cognitive needs: No Hearing needs: No Vision needs: Yes (Patient wears glasses) Review of Systems Const Denies weakness ENT Denies dizziness Card Denies chest pain, Denies chest pain with activity, Denies syncope, Denies rapid heart rate, Denies pedal edema, Denies edema, Denies leg edema, Denies lightheadedness, Denies palpitations, Denies dyspnea, Denies dyspnea on exertion and Denies orthopnea Resp Denies cough, Denies dyspnea and Denies dyspnea on exertion GI Denies hematochezia and Denies change in stool character Musc Denies abnormal gait, Denies muscle cramps, Denies muscle weakness, Denies numbness, Denies radiating pain into limb and Denies tingling Neuro Denies abnormal gait, Denies dizziness, Denies syncope, Denies numbness, Denies tingling and Denies weakness Endo Denies palpitations Physical Exam Vital Signs: Last Vital Signs Pulse 89 10/04/24 12:47 BP 124/68 10/04/24 12:47 BMI result Body Mass Index 29.9 Const General: comfortable and no acute distress Orientation/consciousness: patient oriented x3 HEENT Other: Unremarkable Head: Yes normal to inspection Neck Neck: Yes normal visual inspection Chest Chest palpation & inspection: normal inspection of the chest Resp Auscultation: clear to auscultation bilaterally Cardio Palpation: normal PMI Heart sounds: S1 normal heart sound present, S2 normal heart sound present, no gallops, no murmurs and no rubs GI Palpation (GI): Soft to palpation Back/Spine/Pelvis Other: unremarkable Skin General skin exam: no rashes or lesions noted Neuro General: patient oriented x3 Extrem General: Yes normal to inspection Psych Mental Status: mental status grossly normal Office Procedures EKG Details: EKG with underlying sinus rhythm at 89/Min; cannot exclude old inferior infarct; [place] [id number], Complete Assessment & Plan Assessment & Plan (1) CAD (coronary artery disease): Code(s): I25.10 - Atherosclerotic heart disease of [place] coronary artery without angina pectoris Category: Medical Qualifiers: Associated angina: without angina Coronary Disease-Associated Artery/Lesion type: [place] artery [place] vs. transplanted heart: [place] heart Qualified Code(s): I25.10 - Atherosclerotic heart disease of [place] coronary artery without angina pectoris (2) Type 2 diabetes mellitus with hyperglycemia: Code(s): E11.65 - Type 2 diabetes mellitus with hyperglycemia Category: Medical Qualifiers: 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 helper insulin use: without custodial use Qualified Code(s): E11.65 - Type 2 diabetes mellitus with hyperglycemia (3) Ascending aorta enlargement: Code(s): I77.89 - Other specified disorders of arteries and arterioles Category: Medical Plan Cardiac studies reviewed. In the EKG, underlying rhythm is sinus at 96/Min; possible left atrial enlargement; cannot exclude old inferior infarct; normal [place] and corrected QT. In the echocardiogram, low normal LVEF at 51%. Wall motion abnormalities described in the inferolateral/anterolateral wall but upon 2nd review, could be an over call. Ascending aortic size 4.1 cm. In the stress test, he reached 9.6 Mets exercise capacity and there was no angina or EKG evidence of ischemia. PVCs noted. In the coronary CTA 2023, minimal stenosis in the proximal and mid LAD, proximal 3rd diagonal, proximal PDA. Mild stenosis in the proximal RCA. Findings discussed with patient. With regard to diabetes, seems well controlled. Most recent hemoglobin A1c is 6.6%. He is on metformin and Jardiance. With regard to lipids, well controlled. Last LDL is 65 mg/dL. Triglycerides 76 mg/dL. He is on statins. In the past, PCP had prescribed Praluent but not in his list. Any case, already well controlled on statins. With regard to the low normal LVEF, we may recheck that in a few months. We can also reassess the wall motion. He really does not have a lot of coronary disease to explain the wall motion and hence not clear if it is artifactual or not. With regard to this slight ascending aortic enlargement, again may recheck an echocardiogram before follow-up visit. Discussion Notes I extensively discussed the size and implications of the abdominal aortic aneurysm with the patient, advising that it is not currently at an immediate risk size. I explained that regular imaging will help track any enlargement. Management of hypertension was discussed, emphasizing morning dosing of Lisinopril due to previous low readings when taken at night. For his mild coronary artery disease, I conveyed that the condition is stable, with no immediate interventions necessary, requiring only routine monitoring. We talked about recent improvements in neuropathy through alternative treatments, which the patient found beneficial and agreed to continue. Next steps include follow- up in six months, barring any new symptoms that would prompt earlier evaluation. Patient was informed and verbally consented to the use of an ambient scribe for clinic note documentation during this visit. Patient Instructions: - Continue taking your current medications as prescribed. - Follow your healthy lifestyle and dietary changes to manage diabetes. - Keep monitoring your weight and maintain current weight status. - Monitor for any new symptoms related to hypertension or cardiovascular health. - Attend follow-up cardiac ultrasound in six months to re-check the abdominal aortic aneurysm. - Seek medical care if you experience new or worsening symptoms, especially related to heart health or blood pressure. Coding Level of Care Code Est Pt Level 4 (98182) Complex EM visit Add On G2211 Diagnoses Coronary artery disease involving [place] coronary artery of [place] heart without angina pectoris I25.10 Associated angina: without angina Coronary Disease-Associated Artery/Lesion type: [place] artery [place] vs. transplanted heart: [place] heart Type 2 diabetes mellitus with hyperglycemia, without long-term current use of insulin E11.65 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 helper insulin use: without custodial use Ascending aorta enlargement I77.89 CPT Codes EKG - CPT: [id number]-[id number], Complete ([id number])
== END 2024-10-04 13:15 | disposition home or self-care (01) ==
LOC: HO.HCS 12:32
PROVIDERS: PCP Internal Medicine; Visit Provider Internal Medicine
DX: I25.10 Atherosclerotic heart disease of native coronary artery without angina pectoris (principal); E11.65 Type 2 diabetes mellitus with hyperglycemia; I77.89 Other specified disorders of arteries and arterioles
CPT/HCPCS: 93010; 99214

== ENCOUNTER → 2024-10-04 12:31 | Outpatient (BNVA) | payer OTHER, SELFPAY | PROVIDERS: PCP Internal Medicine; Visit Provider Internal Medicine | DX: I25.10 Atherosclerotic heart disease of native coronary artery without angina pectoris (principal); I77.89 Other specified disorders of arteries and arterioles; E11.65 Type 2 diabetes mellitus with hyperglycemia; Z79.84 Long term (current) use of oral hypoglycemic drugs | CPT/HCPCS: 93005 ==

== ENCOUNTER 2024-10-07 07:55 | Outpatient (REF) | payer OTHER, SELFPAY ==
[2024-10-07 09:01] LABS: Estimated Average Glucose 140 mg/dL; Hemoglobin A1C 205.4002 umol/L; Hemoglobin A1c % 6.5 % (<6.0); Total Hemoglobin (HGBA1C) 4306.0762 umol/L
[2024-10-07 09:34] LABS: Alanine Aminotransferase 27 U/L (0-40); Albumin Level 4.2 g/dL (3.5-5.0); Alkaline Phosphatase 53 U/L (39-117); Anion Gap 11 (12-20); Aspartate Amino Transferase 21 U/L (5-37); Bilirubin Total 0.6 mg/dL (0.0-1.0); Blood Urea Nitrogen 19 mg/dL (9-16); Calcium 9.1 mg/dL (8.4-10.2); Carbon Dioxide 28 mmol/L (22-29); Chloride 105 mmol/L (96-108); Cholesterol 117 mg/dL (<200); Estimated Glomerular Filt Rate > 60; Glucose Random 113 mg/dL (60-115); HDL Cholesterol 42 mg/dL (>40); Iron 76 mcg/dL (45-160); LDL Cholesterol Calculated 61 mg/dL (<100); Percent Iron Saturation 28 % (15-50); Potassium 4.2 mmol/L (3.3-5.1); Sodium 140 mmol/L (135-145); Total Iron Binding Capacity 270 mcg/dL (228-428); Total Protein 6.8 g/dL (6.5-8.0); Triglycerides 72 mg/dL (<150); Unsaturated Iron Binding 194 ug/dL
== END 2024-10-07 07:56 | disposition home or self-care (01) ==
LOC: HO.LAB 07:55
PROVIDERS: PCP Internal Medicine; Visit Provider Internal Medicine
DX: E11.65 Type 2 diabetes mellitus with hyperglycemia (principal)
CPT/HCPCS: 36415; 80053; 80061; 83036; 83540

== ENCOUNTER 2024-10-24 10:07 | Outpatient (AMB) | payer OTHER, SELFPAY ==
--- NOTE | 2024-10-24 10:12 | A.OFFPC_ITS ---
Vital Signs 10/24/24 10:14 Height 5 ft 9 in Weight 209 lb BMI 30.9 BP 112/76 Blood Pressure Location Lt brachial Position Sitting Respiration 12 Pulse 82 Pulse Source Pulse Oximeter Pulse Oximetry (%) 98 Oxygen Delivery Method Room Air Intake Visit Reasons: DM follow up Intake Note: Diabetes follow up Manager Track Required: No Allergies atorvastatin Allergy (Uncoded 10/24/24 10:13) Muscle cramps albumin Adverse Reaction (Mild, Uncoded 10/24/24 10:13) Vomiting Tobacco use date assessed: 10/24/24 Dental Screening Dental Screen Date: 10/24/24 Did you have a dental visit in the last 12 months?: Yes Did you have a dental problem in the last 6 months where you did not have access to dental care?: No Was dental information given to patient?: Patient has dentist HPI HPI Comments History of Present Illness Details The patient is a 49 year old male with a past medical history of recent abnormal cardiac testing, hyperlipidemia presenting for follow up Neuromuscular: Improving extremity pain, burning, tingling. Had upper thigh, leg, foot cramping with atorvastatin, pravastatin. Had not gotten relief from OTC medications, topicals to date. started treatment plan with [facility] included near right therapy, supplements. Labs with mild elevation in wbc, eosinophils 23.1%. Saw hematology. Labs essentially normalized Type 2 diabetes: Diagnosed 09/2023 with A1C 12.7%. A1C 7.4 one month later, 05/2024 6.6. On metformin 1500mg, jardiance 10mg daily.. Last A1C 6.5%. Was using CGM but readings were quite off fingersticks. continues on his low/no carb diet and has been doing well. There is a strong family history of diabetes. Was started on statin therapy with atorvastatin could not tolerate due to intense muscle pain, same with pravastatin. Able to tolerate 5mg crestor. On CAN-I for renal protection CV:Following with cardiology at [facility] [place]. Recently seen On CAN for renal protection. He had an EKG suggestive of old ischemia and subsequent echocardiogram showed mild systolic dysfunction with moderate hypokinesis. Saw cardiology. Had CT angio with no clinically significant stenosis. Will follow aortic dilation. ROS see HPI PHYSICAL EXAM: GENERAL: Alert and oriented x 3. NAD EYES: EOMI. Anicteric. HENT: Moist mucous membranes. No scleral icterus. No cervical lymphadenopathy. LUNGS: Clear to auscultation bilaterally. CARDIOVASCULAR: Regular rate and rhythm. No murmur. No JVD. ABDOMEN: Soft, non-tender +bs : Normal penis, testes EXTREMITIES: No edema. Non-tender. SKIN: No rashes or lesions. Warm. NEUROLOGIC: No focal neurological deficits. CN II-XII grossly intact PSYCHIATRIC: Cooperative. 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 Current occupational exposures/hazards: No Cognitive needs: No Hearing needs: No Vision needs: Yes (Patient wears glasses) Questionnaire Thrive Questionnaire Date Thrive assessed: 06/20/24 I am a: Patient What is your living situation today?: I choose not to answer this question Within the past 12 months, did the food you bought not last and you didn't have the money to get more?: I choose not to answer this question Within the past 12 months, did you worry whether your food would run out before you got money to buy more?: I choose not to answer this question Do you have trouble paying for medicines?: I choose not to answer this question Do you have trouble getting transportation to medical appointments?: I choose no t to answer this question Do you have trouble paying your heating and electricity bill?: I choose not to answer this question Do you have trouble taking care of your child, family member or friend?: I choose not to answer this question Do you have trouble with day-to-day activities such as bathing, preparing meals, shopping, managing finances, etc.?: I choose not to answer this question Are you currently unemployed and looking for a job?: I choose not to answer this question Are you interested in more education?: I choose not to answer this question Please select the resources that you would like help with: None Currently or been in a relationship where the following occur: I choose not to answer THRIVE Score: 0 Physical exam (Primary Care) Vital Signs: Last Vital Signs Pulse 82 10/24/24 10:14 Resp 12 10/24/24 10:14 BP 112/76 10/24/24 10:14 Pulse Ox 98 10/24/24 10:14 Oxygen Delivery Method Room Air 10/24/24 10:14 BMI result Body Mass Index 30.9 Tobacco/Smoking Status: Tobacco use Status Tobacco use date assessed 10/24/24 10/24/24 10:18 Patient Tobacco Use Status Never used Tobacco 10/24/24 10:18 e-Cigarette/Vaping Use Never Used 10/24/24 10:18 Thrive Assessment: Date of Thrive Assessment Date Thrive assessed 06/20/24 10/24/24 10:13 Currently or been in a relationship where the following occur: I choose not to answer Coding Level of Care Code Est Pt Level 4 (65312) Diagnoses Controlled type 2 diabetes mellitus with diabetic polyneuropathy, without long- term current use of insulin E11.42 Diabetes mellitus correction insulin use: without correction use Diabetes mellitus complication status: with neurologic complications Diabetes mellitus complication detail: with polyneuropathy Assessment & Plan Assessment & Plan (1) Controlled type 2 diabetes mellitus: Code(s): E11.9 - Type 2 diabetes mellitus without complications Category: Medical Qualifiers: 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 Can be seen q4-6 months. Labs ordered to be completed prior to next visit Continue CAN statin therapy Orders: Orders Complete Blood Count Auto Diff 3 Months E11.42 - Type 2 diabetes mellitus with diabetic polyneuropathy Comprehensive Met. Panel 3 Months E11.42 - Type 2 diabetes mellitus with diabetic polyneuropathy Lipid Panel 3 Months E11.42 - Type 2 diabetes mellitus with diabetic polyneuropathy Hemoglobin A1c 3 Months E11.42 - Type 2 diabetes mellitus with diabetic polyneuropathy Medications: Refilled lisinopril 2.5 mg PO DAILY 90 tabs 3RF 90 days
[2024-10-24 10:14] VITALS: BP 112/76; PULSE 82; RESP 12; O2SAT 98; BMI 30.9
== END 2024-10-24 10:50 | disposition home or self-care (01) ==
LOC: HO.HMCFM 10:11
PROVIDERS: PCP Internal Medicine; Visit Provider Internal Medicine
DX: E11.42 Type 2 diabetes mellitus with diabetic polyneuropathy (principal)

== ENCOUNTER → 2024-10-24 10:07 | Outpatient (BNVA) | payer OTHER, SELFPAY | PROVIDERS: PCP Internal Medicine; Visit Provider Internal Medicine ==

== ENCOUNTER → 2024-10-31 07:40 | Outpatient (BNVA) | payer SELFPAY | PROVIDERS: PCP Internal Medicine; Visit Provider Physician Assistant Medical | DX: Z02.79 Encounter for issue of other medical certificate (principal) ==

== ENCOUNTER 2025-02-27 08:36 | Outpatient (REF) | payer OTHER, SELFPAY ==
[2025-02-27 08:55] LABS: MANUAL DIFF FLAG NO
[2025-02-27 09:12] LABS: Hematocrit 49.7 % (42.0-52.0); Hemoglobin 16.8 g/dl (14.0-18.0); Imm Gran Abs Auto 0.03 X10*3/uL (0.00-0.03); Imm Gran Pct Auto 0.4 % (0.0-0.4); Lymphocytes Absolute Auto 3.1 X10*3/uL (1.2-4.9); Mean Corpuscular HGB Conc 33.8 g/dl (31.0-36.0); Mean Corpuscular Hemoglobin 31.1 pg (27.0-33.0); Mean Corpuscular Volume 91.9 fL (80.0-98.0); NRBC Abs Auto 0.000 X10*3/uL (0.0-0.012); NRBC Pct Auto 0.0 /100WBC (0.0-0.2); Platelet Count 245 X10*3/uL (160-400); Red Blood Count 5.41 X10*6/uL (4.60-5.80); White Blood Count 7.8 X10*3/uL (4.8-10.8)
[2025-02-27 09:37] LABS: Alanine Aminotransferase 32 U/L (0-40); Albumin Level 4.6 g/dL (3.5-5.0); Alkaline Phosphatase 47 U/L (39-117); Anion Gap 12 (12-20); Aspartate Amino Transferase 21 U/L (5-37); Blood Urea Nitrogen 17 mg/dL (9-16); Calcium 8.8 mg/dL (8.4-10.2); Carbon Dioxide 27 mmol/L (22-29); Chloride 105 mmol/L (96-108); Cholesterol 139 mg/dL (<200); Estimated Glomerular Filt Rate > 60; HDL Cholesterol 44 mg/dL (>40); Potassium 4.2 mmol/L (3.3-5.1); Sodium 140 mmol/L (135-145); Total Protein 6.9 g/dL (6.5-8.0); Triglycerides 69 mg/dL (<150)
== END 2025-02-27 08:37 | disposition home or self-care (01) ==
LOC: HO.LAB 08:36
PROVIDERS: PCP Internal Medicine; Visit Provider Internal Medicine
DX: E11.42 Type 2 diabetes mellitus with diabetic polyneuropathy (principal)
CPT/HCPCS: 36415; 80053; 80061; 83036; 85025

== ENCOUNTER 2025-02-28 13:02 | Outpatient (AMB) | payer OTHER, SELFPAY ==
--- NOTE | 2025-02-28 13:11 | MHC.PC.OV ---
Vital Signs 02/28/25 13:14 Height 5 ft 9 in Weight 211 lb 6 oz BMI 31.2 BP 110/74 Blood Pressure Location Lt brachial Position Sitting Respiration 14 Pulse 97 Pulse Source Pulse Oximeter Pulse Oximetry (%) 96 Oxygen Delivery Method Room Air Intake Visit Reasons: follow up bloodwork Intake Note: Follow up blood work. 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 Saw hematology. Labs essentially normalized Type 2 diabetes: A1C 02/2025-6.7%. Diagnosed 09/2023 with A1C 12.7%> 7.4 >6.6. On metformin 1500mg, jardiance 10mg daily. Was using CGM but readings were quite off fingersticks. continues on his low/no carb diet and has been doing well. There is a strong family history of diabetes. CV: Following with cardiology at [facility] [place]. Lisinopril 2.5mg daily, crestor 5mg 5x/week. He had an EKG suggestive of old ischemia and subsequent echocardiogram showed mild systolic dysfunction with moderate hypokinesis. Saw cardiology. Had CT angio with no clinically significant stenosis. Will follow aortic dilation. Neuromuscular: Improved extremity pain, burning, tingling. Had upper thigh, leg, foot cramping with atorvastatin, pravastatin. Had not gotten relief from OTC medications, topicals to date. started treatment plan with [facility] included near right therapy, supplements. Due for colon cancer screening ROS see HPI PHYSICAL EXAM: GENERAL: Alert and oriented x 3. NAD EYES: EOMI. Anicteric. HENT: Moist mucous membranes. No scleral icterus. No cervical lymphadenopathy. LUNGS: Clear to auscultation bilaterally. CARDIOVASCULAR: Regular rate and rhythm. No murmur. No JVD. ABDOMEN: Soft, non-tender +bs : Normal penis, testes EXTREMITIES: No edema. Non-tender. SKIN: No rashes or lesions. Warm. NEUROLOGIC: No focal neurological deficits. CN II-XII grossly intact PSYCHIATRIC: Cooperative. Appropriate mood and affect [facility] Medical History Diabetes No pertinent past medical history Surgical History No pertinent past surgical history (~10/16/23) Family History Father Diabetes Mother Cervical cancer Social History Household Members: Spouse Housing: House Are you a primary dog day care attendant to a significant other at home: No Do you presently have visiting nurse or other home services: No Alcohol intake: former Patient Tobacco Use Status: Never used Tobacco e-Cigarette/Vaping Use: Never Used service: No Current occupational status: employed 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 Current occupational exposures/hazards: No Cognitive needs: No Hearing needs: No Vision needs: Yes (Patient wears glasses) Questionnaire Thrive Questionnaire Date Thrive assessed: 06/20/24 I am a: Patient What is your living situation today?: I choose not to answer this question Within the past 12 months, did the food you bought not last and you didn't have the money to get more?: I choose not to answer this question Within the past 12 months, did you worry whether your food would run out before you got money to buy more?: I choose not to answer this question Do you have trouble paying for medicines?: I choose not to answer this question Do you have trouble getting transportation to medical appointments?: I choose not to answer this question Do you have trouble paying your heating and electricity bill?: I choose not to answer this question Do you have trouble taking care of your child, family member or friend?: I choose not to answer this question Do you have trouble with day-to-day activities such as bathing, preparing meals, shopping, managing finances, etc.?: I choose not to answer this question Are you currently unemployed and looking for a job?: I choose not to answer this question Are you interested in more education?: I choose not to answer this question Please select the resources that you would like help with: None Currently or been in a relationship where the following occur: I choose not to answer THRIVE Score: 0 Physical exam (Primary Care) Vital Signs: Last Vital Signs Pulse 97 02/28/25 13:14 Resp 14 02/28/25 13:14 BP 110/74 02/28/25 13:14 Pulse Ox 96 02/28/25 13:14 Oxygen Delivery Method Room Air 02/28/25 13:14 BMI result Body Mass Index 31.2 Tobacco/Smoking Status: Tobacco use Status Tobacco use date assessed 02/28/25 02/28/25 13:18 Patient Tobacco Use Status Never used Tobacco 02/28/25 13:18 e-Cigarette/Vaping Use Never Used 02/28/25 13:18 Thrive Assessment: Date of Thrive Assessment Date Thrive assessed 06/20/24 02/28/25 13:11 Currently or been in a relationship where the following occur: I choose not to answer Coding Level of Care Code Est Pt Level 4 (82391) Complex EM visit Add On G2211 Diagnoses Type 2 diabetes mellitus with hyperglycemia, without long-term current use of insulin E11.65 Diabetes mellitus assisted insulin use: without assisted use Chronic systolic CHF (congestive heart failure) I50.22 Neuropathy involving both lower extremities G57.93 Laterality: bilateral Assessment & Plan Assessment & Plan (1) Type 2 diabetes mellitus with hyperglycemia: Code(s): E11.65 - Type 2 diabetes mellitus with hyperglycemia Category: Medical Qualifiers: 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 insulin use: without termite treater use Qualified Code(s): E11.65 - Type 2 diabetes mellitus with hyperglycemia (2) Chronic systolic CHF (congestive heart failure): Code(s): I50.22 - Chronic systolic (congestive) heart failure Category: Medical (3) Lower extremity neuropathy: Code(s): G57.90 - Unspecified mononeuropathy of unspecified lower limb Category: Medical Qualifiers: Laterality: bilateral Qualified Code(s): G57.93 - Unspecified mononeuropathy of bilateral lower limbs Plan 49 year old for follow up DM remains controlled on current medications Neuropathy is stable CHF/CAD-continue cardiology follow up. LDL slightly above goal. Taking crestor 5x/week. Due for colon cancer screening-cologuard sent Orders: Orders Microalbumin, Random (w Creat) 3 Months E11.42 - Type 2 diabetes mellitus with diabetic polyneuropathy, E11.65 - Type 2 diabetes mellitus with hyperglycemia Hemoglobin A1c 3 Months E11.42 - Type 2 diabetes mellitus with diabetic polyneuropathy, E11.65 - Type 2 diabetes mellitus with hyperglycemia Comprehensive Met. Panel 3 Months E11.42 - Type 2 diabetes mellitus with diabetic polyneuropathy, E11.65 - Type 2 diabetes mellitus with hyperglycemia Referrals Cologuard Test Z12.11 - Encounter for screening for malignant neoplasm of colon, Z12.12 - Encounter for screening for malignant neoplasm of rectum
[2025-02-28 13:14] VITALS: BP 110/74; PULSE 97; RESP 14; O2SAT 96; BMI 31.2
== END 2025-02-28 13:47 | disposition home or self-care (01) ==
LOC: HO.HMCFM 13:03
PROVIDERS: PCP Internal Medicine; Visit Provider Internal Medicine
DX: E11.65 Type 2 diabetes mellitus with hyperglycemia (principal); I50.22 Chronic systolic (congestive) heart failure; G57.93 Unspecified mononeuropathy of bilateral lower limbs

== ENCOUNTER → 2025-05-12 12:36 | Outpatient (REF) | payer OTHER, SELFPAY | LOC: HO.CARD 12:36 | PROVIDERS: PCP Internal Medicine; Visit Provider Internal Medicine | DX: I77.89 Other specified disorders of arteries and arterioles (principal) | CPT/HCPCS: 93306 ==

== ENCOUNTER → 2025-05-12 12:39 | Outpatient (BNV) | payer OTHER, SELFPAY | PROVIDERS: PCP Internal Medicine; Visit Provider Internal Medicine | DX: I77.810 Thoracic aortic ectasia (principal) | CPT/HCPCS: 93306; 93356 ==